=== PATIENT | male | born 1945 | race Caucasian/White ===

== ENCOUNTER 2017-03-31 10:17 | Inpatient (IN) ==
[2017-03-31] MEDS ORDERED: ZOFRAN ODT PO ONE (10:37)
[2017-03-31 11:12] LABS: MANUAL DIFF NEEDED? NO
--- NOTE | 2017-03-31 11:14 | PROVIDER DOCUMENTATION ---
HPI-Abdominal Pain/GI Problem - General Chief Complaint: Abdominal Pain Stated Complaint: chest pain Time Seen by Provider: 03/31/17 10:24 Source: patient Allergies/Adverse Reactions: Patient Allergies Allergy/AdvReac Type Severity Reaction Status Date / Time No Known Allergies Allergy Verified 08/15/13 06:36 Home Medications: Home Medication List Medication Instructions Recorded Confirmed Last Taken Type Aspirin 81 mg PO DAILY 08/15/13 08/15/13 03/31/17 History Esomeprazole [Nexium] 40 mg PO DAILY 08/15/13 03/31/17 03/30/17 History Hkcktehj-Skafnli-Smcw 149-Hyal 1 each PO BID 08/15/13 03/31/17 03/30/17 History [Glucosamine Chondroitin Tablet] LISINOpril [Prinivil] 20 mg PO DAILY 08/15/13 03/31/17 03/30/17 History Meloxicam [Mobic] 7.5 mg PO DAILY 08/15/13 03/31/17 03/30/17 History Multivitamins/Minerals [Centrum 1 each PO DAILY 08/15/13 03/31/17 03/30/17 History Silver] SIMVAstatin [Zocor] 40 mg PO QHS 08/15/13 03/31/17 03/30/17 History Valacyclovir HCl [Valtrex] 1,000 mg PO PRN PRN 08/15/13 03/31/17 03/30/17 History - History of Present Illness-ABD Nature of Presenting Problems: 71 y/o WM c/o periumbilical abdominal pain that began at 0900 today. States it was a severe sharp pain, until he vomited just a few minutes ago, and it has improved. Had a normal BM this morning, no blood or diarrhea. Still feeling nauseated. Denies chest pain or sob, although states he is worried about his heart. Denies fevers or chills. He has been losing weight; about 15 pounds in 2 months. He has been seeing Dr. Joy for this and apparently had a cancer work up involving CT scans, barium swallow, and a nuclear medicine gastric emptying test. states they have just found that he has decreased gastric motility, so he has lost appetite. Review of Systems - Adult - REVIEW OF SYSTEMS - ADULT Constitutional: reports: see HPI, weight loss. denies: chills, fever, fatique Eyes: reports: no symptoms reported. denies: decreased vision, blurred vision, double vision, eye pain Ears, Nose, Mouth & Throat: reports: no symptoms reported. denies: ear pain, nose pain, throat pain Cardiovascular: reports: no symptoms reported. denies: chest pain, palpitations Respiratory: reports: no symptoms reported. denies: cough, shortness of breath , wheezing Gastrointestinal: reports: see HPI, abdominal pain, nausea, poor appetite, vomiting. denies: constipation, diarrhea, rectal bleeding Genitourinary: reports: no symptoms reported. denies: dysuria, discharge, frequency Musculoskeletal: reports: no symptoms reported. denies: bone pain, back pain, muscle aches Integumentary: reports: no symptoms reported. denies: rash Neurological: reports: no symptoms reported. denies: headache/migraines Psychiatric: reports: no symptoms reported Endocrine: reports: no symptoms reported Hematologic/Lymphatic: reports: no symptoms reported Allergic/Immunologic: reports: no symptoms reported All Other Systems: Reviewed and Negative Past History - Adult - PAST MEDICAL HISTORY-ADULT Review of Records: reports: Old Records Reviewed, Nursing Assessment Review, Medications Reviewed, Social history reviewed & non-contributory. Major Childhood Illnesses: reports: denies history Cardiovascular: reports: HTN, hyperlipidemia Respiratory: reports: denies history Gastrointestinal: reports: denies history Genitourinary: reports: denies history Musculoskeletal: reports: denies history Neurological: reports: denies history Endocrine/Immune: reports: denies history Other Conditions: reports: denies history - PRIOR SURGERIES/PROCEDURES Surgical/Procedure History: reports: reviewed, not pertinent - IMMUNIZATION STATUS Childhood Immunizations: See Nurse Assessment Flu Vaccine: See Nurse Assessment - FAMILY HISTORY Family History: reviewed, not pertinent - SOCIAL HISTORY Smoking: denies Substance Use: none/never Alcohol Use Frequency: never Physical Exam-General - PHYSICAL EXAM-ADULT Initial Vital Signs Reviewed: Yes - CONSTITUTIONAL General Appearance: appears well, alert, no apparent distress - EYES Eyes: PERRL/EOMI, pink conjunctivae - HEAD, EARS, NOSE, MOUTH & THROAT HENMT: normocephalic/atraumatic, moist mucous membranes - NECK Neck: non-tender, full range of motion, supple, normal inspection. negative: lymphadenopathy - RESPIRATORY Respiratory: chest non-tender, lungs clear, normal breath sounds, no pleuratic chest pain, no respiratory distress, no accessory muscle use. negative: respiratory distress, decreased breath sounds, accessory muscle use, crackles, rales, rhonchi, wheezing - CARDIOVASCULAR Cardiovascular: normal peripheral pulses, regular rate, rhythm, no edema, no gallop, no murmur - GASTROINTESTINAL (ABDOMEN) Abdominal Exam: normal bowel sounds, soft, no organomegaly, no pulsatile mass, tenderness (periumbilical) - LYMPHATIC Lymphatic: no adenopathy - MUSCULOSKELETAL Back Exam: normal inspection, no CVA tenderness, no vertebral tenderness Extremity: normal range of motion, non-tender, normal gait, normal inspection Peripheral Pulses: radial (R): 2+, radial (L): 2+, dorsalis-pedis (R): 2+, dorsalis-pedis (L): 2+ - SKIN Integumentary: normal color, normal turgor, warm/dry - NEUROLOGIC Neurologic: grossly normal, no motor/sensory deficits - PSYCHIATRIC Psych/Mental Status: normal mood/affect, normal thought content, normal thought process, oriented x 3 Progress - PLAN OF CARE/RESULTS Progress/Plan/Lab Results: Vital Signs - 8 hr 03/31/17 10:26 Temperature 97.9 F Pulse Rate 89 Respiratory Rate 24 Blood Pressure 124/71 O2 Sat by Pulse Oximetry 99 Orders Category Date Time Status Saline Loc DIRECTED Care 03/31/17 11:07 Active NPO Diet 03/31/17 11:07 Active AMYLASE [CHEM] Stat Lab 03/31/17 11:07 Ordered CBC WITH ELECTRONIC DIFF [HEME] Stat Lab 03/31/17 11:07 Ordered CK PROFILE [SP CHEM] Stat Lab 03/31/17 11:09 Ordered COMPREHENSIVE METABOLIC PANEL [CHEM] Stat Lab 03/31/17 11:07 Ordered LIPASE [CHEM] Stat Lab 03/31/17 11:07 Ordered TROPONIN T Stat Lab 03/31/17 11:09 Ordered Ondansetron Odt [Zofran Odt] Med 03/31/17 10:37 Discontinued 4 mg PO NOW ONE EKG [EKG] Stat Ther 03/31/17 11:07 Ordered Result Diagrams: 03/31/17 10:21 03/31/17 10:21 - REASSESSMENT Reassessment #1 Time Reassessed: 12:21 (Discussed findings with with patient. He is a daily alcohol drinker, had "2 drinks" last night, each drink aving 3 shots of hard liquor.) Status: unchanged - CONSULTS/PCP/HOSPITALIST Notification #1 *Consult/PCP/Hospitalist*: Dr. Linton, internal medicine Time Discussed: 12:28 Reason/Comments: alcoholic pancreatitis Consult Disposition: Admit Departure - Departure Time of Disposition Decision: 12:23 DIAGNOSIS: Pancreatitis, alcoholic, acute Qualifiers: Acute pancreatitis complication: unspecified Qualified Code(s): K85.20 - Alcohol induced acute pancreatitis without necrosis or infection Disposition: ADMITTED INPATIENT 09 Certified Medical Emergency: Emergent Condition: Stable Referrals and Follow-Ups: None,PCP [Primary Care Provider] - - Critical Care Note This patient required my direct & personal management of CC.: No Attestation - Physician/ STEPHANIE Attestation Patient care was provided by Advanced Practice Provider:: Yes Advanced Practice Provider:: Johanna Reilly Advanced Practice Provider documentation review:: The Mid-level provider documentation, treatment plan and medical decision making was reviewed by the physician who agrees with all treatment and medical decision making by the MLP.
[2017-03-31 11:36] LABS: BASO% 0.1 % (0.0-0.8); EOS# 0.18 X1000 (0.0-0.7); EOS% 1.8 % (0.0-10.0); HEMATOCRIT 37.5 % (42.0-52.0); HEMOGLOBIN 12.4 g/dL (14.0-18.0); IMM GRAN# 0.02 X1000 (0.0-0.04); IMM GRAN% 0.2 % (0.0-0.5); LYMPH# 3.17 X1000 (1.2-3.4); LYMPH% 32.3 % (20.5-51.1); MCH 31.1 PG (27-31); MCHC 33.1 g/dL (33-37); MONO# 0.83 X1000 (0.11-0.59); MONO% 8.5 % (1.7-9.3); MPV 10.5 FL (7.4-10.4); NEUT% 57.1 % (42.2-75.2); PLT 389 X1000 (130-400); RBC 3.99 XMIL (4.7-6.1)
[2017-03-31 12:12] LABS: AGAP 19; ALBUMIN 4.1 g/dL (3.5-5.0); ALKALINE PHOSPHATASE 85 U/L (32-122); AMYLASE 770 U/L (20-200); BUN 13 mg/dL (8-22); CALCIUM 9.1 mg/dL (8.8-10.2); CHLORIDE 98 mmol/L (98-107); COSMO 280; GOT 114 U/L (10-34); GPT 41 U/L (10-44); LIPASE 2579 U/L (13-60); POTASSIUM 3.5 mmol/L (3.5-5.1); SODIUM 139 mmol/L (136-145); TCO2 22 mmol/L (25-35); TOTAL BILIRUBIN 0.47 mg/dL (0.20-1.00); TOTAL PROTEIN 6.5 g/dL (6.3-8.3)
[2017-03-31] MEDS ORDERED: NS 1,000 ML IV ONE (12:17)
[2017-03-31] MEDS ORDERED: REGLAN IV ONE (12:19)
[2017-03-31] MEDS ORDERED: DILAUDID IV ONE (12:20)
--- NOTE | 2017-03-31 13:20 | EKG Report ---
Test Performed on : 03/31/2017 10:20:32 AM Test Reason : cp Blood Pressure : / mmHG Vent. Rate : 093 BPM Atrial Rate : 093 BPM P-R Int : 132 ms QRS Dur : 094 ms QT Int : 378 ms P-R-T Axes : 041 018 041 degrees QTc Int : 469 ms Sinus rhythm. with frequent premature ventricular complexes. with junctional escape complexes. Possible Inferior infarct (cited on or before 31-MAR-2017) Abnormal ECG When compared with ECG of 31-MAR-2017 10:19, (Unconfirmed) Sinus rhythm. has replaced Atrial fibrillation. Unconfirmed Result
[2017-03-31 14:40] LABS: HDL 42 mg/dL (35-55); LDL 57 mg/dL; MAGNESIUM 2.1 mg/dL (1.5-2.7); TRIGLYCERIDES 58 mg/dL (39-160); VLDL 12 mg/dL
[2017-03-31 14:48] LABS: FREE T4 1.6 ng/dL (0.93-1.70)
[2017-03-31] MEDS ORDERED: ATIVAN IV PRN ×2 (15:21)
--- NOTE | 2017-03-31 16:10 | HISTORY AND PHYSICAL ---
PRIMARY CARE PHYSICIAN: Dr. Skinny Joy. CHIEF COMPLAINT: Abdominal pain. HISTORY OF PRESENT ILLNESS: Mr. Wheat is a 71-year-old male with a history of hypertension, hyperlipidemia and GERD, who presents with acute onset of abdominal pain that began this morning around 7:30 or 8 while he was sitting at his desk. He has actually had symptoms going on since beginning of this year. He states he has seen Dr. Joy and has had multiple tests run so far including barium swallow, gastric emptying test. He is also scheduled to see Dr. Serrano with GI soon. He reports that today about an hour after he ate he started having significant bilateral upper quadrant abdominal pain, which he describes as intense in nature and sharp in description. It was nonradiating and is constant. He had an episode of emesis while he was in ER, but has had no diarrhea. He denies hematemesis or hematochezia. He denies any overt chest pain or shortness of breath, no lower extremity edema or orthopnea. He denies any dysuria or hematuria. He reports that he has two drinks of scotch every night and has been doing so for some time now. He came to the ER because the pain got too bad, and in the ER he had a lipase of 2579 and an amylase of 770 consistent with pancreatitis. He was also mildly anemic, but otherwise his laboratory data studies are unremarkable. He is now going to be admitted for further treatment of acute pancreatitis. PAST MEDICAL HISTORY: 1. Hypertension. 2. GERD. 3. Hyperlipidemia. SURGICAL HISTORY: He has had a hernia repair, left hip replacement, and he has had a benign esophageal mass removed. SOCIAL HISTORY: Patient denies tobacco or drug use. He reports drinking 2 shots of liquor a night. He is . 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 FAMILY HISTORY: Noncontributory. REVIEW OF SYSTEMS: Fourteen-point review of systems obtained and found to be negative with the exception of the HPI. ALLERGIES: No known drug allergies. HOME MEDICATIONS: 1. Aspirin 81 mg daily. 2. Nexium 40 mg daily. 3. Glucosamine chondroitin 1 b.i.d. 4. Prinivil 20 mg daily. 5. Mobic 7.5 mg daily. 6. Zocor 40 mg at bedtime. 7. Valtrex 1000 mg p.o. as needed. PHYSICAL EXAMINATION: VITAL SIGNS: Blood pressure is 163/89, heart rate 75, respiratory rate 22, O2 saturation 98% on room air. GENERAL: Well developed, well nourished, male, lying in hospital bed in no acute distress. NEUROLOGIC: The patient is awake, alert, and oriented. Follows commands without focal deficits. HEENT: Head is atraumatic and normocephalic. Pupils are equal, round, reactive to light. Oral mucosa is moist. NECK: Trachea is midline. No JVD or carotid bruits. CHEST: Clear to auscultation bilaterally. CV: Regular rate and rhythm. S1, S2 is noted. No murmurs, gallops, clicks, rubs. GI: Bilateral upper quadrant tenderness to palpation, right greater than left. Belly is soft, nondistended. Hypoactive bowel sounds are noted. EXTREMITIES: Without edema, clubbing or cyanosis. Pulses are palpable bilaterally. DIAGNOSTIC DATA: WBC 9.82, hemoglobin 12.4, hematocrit 37.5, platelet count 389. Sodium 139, potassium 3.5, chloride 98, CO2 22, anion gap 19. BUN 13, creatinine 0.7, glucose 140, calcium 9.1, magnesium 2.1. Ferritin 22, bilirubin 0.47. AST 114, ALT 41, alkaline phosphatase 85, troponin negative. Amylase 770, lipase 2579. ASSESSMENT AND PLAN: 1. Acute pancreatitis: Etiology is unclear. However, would presume alcohol as the main offender. Would not rule out gallstone pancreatitis or other etiologies as well. We are going to check a lipid panel. A CT of the abdomen and pelvis. Keep him on nothing by mouth. Provide bowel rest and add as-needed intravenous pain medication, as well as aggressive hydration. We have advised him to stop drinking, at least for now. 2. Mild anemia: Will check iron studies and treat appropriately. 3. Hypertension: We will add intravenous as-needed medications for now. 4. Gastroesophageal reflux disease: We will add intravenous Protonix. 5. Hyperlipidemia: We will hold his statin for now. Restart when he is feeling better. 6. Deep vein thrombosis prophylaxis with Lovenox: Further recommendations to follow. Dictated by BRIJESH Reynolds for Fab Linton MD cc: Traivs J. Mikolaschek, MD Skinny Hameed MD
[2017-03-31] MEDS: NS 1,000 ML IV SCH ×2 (16:11→22:56)
[2017-03-31] MEDS: DILAUDID IV PRN ×3 (16:52→22:55)
[2017-03-31] MEDS ORDERED: APRESOLINE IV PRN (17:38)
[2017-03-31] MEDS ORDERED: LABETALOL IV PRN (17:38)
--- NOTE | 2017-03-31 19:47 | Diag Imaging Result Document ---
PROCEDURE NAME: ABDOMEN/PELVIS W/CONTRAST - 03/31/2017 COMPARISON: 02/23/2017. FINDINGS: There is suggestion of mild atelectasis at the left lung base. There is extensive inflammatory stranding and fluid that appears to be emanating from the pancreas consistent with acute pancreatitis. There is subtle low density involving the proximal tail of the pancreas suggesting possible early pancreatic necrosis. The gallbladder appears normal and is not distended. There is no evidence of significant biliary dilatation. There is nonloculated fluid that appears to be emanating from the pancreas and extending into the pericolic gutters. There is no evidence of a loculated fluid collection to indicate pancreatic abscess on this study. The duodenum adjacent to the pancreas is thickened suggesting secondary duodenitis. The stomach is distended. There is no portal vein or splenic vein thrombosis. There is diverticulosis coli, but there is no evidence of diverticulitis. There are few stable cystic-appearing tiny renal lesions. No free abdominal gas is appreciated. The pelvis is partially obscured by beam-hardening artifact related to left hip arthroplasty. The remainder of the solid viscera of the abdomen and pelvis and the remainder of the GI tract is essentially unremarkable. IMPRESSION: 1. Severe acute pancreatitis consistent with the given history with potential early focal pancreatic necrosis at the tail. 2. Suggestion of adjacent duodenitis. 3. Gastric distention. 4. Other incidental/nonacute findings detailed above.
[2017-03-31] MEDS: ZOFRAN IV PRN (23:32)
[2017-04-01] MEDS: ZOFRAN IV PRN (03:50)
[2017-04-01] MEDS: DILAUDID IV PRN ×5 (03:50→19:53)
[2017-04-01 04:11] LABS: HEMATOCRIT 43.8 % (42.0-52.0); HEMOGLOBIN 14.7 g/dL (14.0-18.0); MCH 31.2 PG (27-31); MCHC 33.6 g/dL (33-37); MPV 10.2 FL (7.4-10.4); RBC 4.71 XMIL (4.7-6.1)
[2017-04-01] MEDS: NS 1,000 ML IV SCH (05:49)
[2017-04-01] MEDS ORDERED: LR 1,000 ML IV SCH (13:03)
[2017-04-01] MEDS ORDERED: PROTONIX IV SCH (13:15)
[2017-04-01] MEDS: SODIUM CHLORIDE 0.9% INJ SCH (13:57)
[2017-04-01 15:06] LABS: AGAP 12; BUN 24 mg/dL (8-22); CALCIUM 8.5 mg/dL (8.8-10.2); CHLORIDE 107 mmol/L (98-107); COSMO 294; POTASSIUM 5.2 mmol/L (3.5-5.1); SODIUM 144 mmol/L (136-145); TCO2 25 mmol/L (25-35)
[2017-04-01 15:15] LABS: URINE CULTURE NEEDED? NO; URINE SOURCE CATH
[2017-04-01 15:31] LABS: BILIRUBIN URINE SMALL (NEGATIVE); BLOOD URINE SMALL (NEGATIVE); COLOR YELLOW; GLUCOSE URINE TRACE mg/dL (NEGATIVE); LEUKOCYTES URINE NEGATIVE (NEGATIVE); NITRITE URINE NEGATIVE (NEGATIVE); PH URINE 5.5; PROTEIN URINE 100 mg/dL (NEGATIVE); SP GRAVITY URINE 1.036; TURBIDITY URINE HAZY (CLEAR); URINE MICRO REVIEW NEEDED? YES; UROBILINOGEN URINE 2 mg/dL (NORMAL)
--- NOTE | 2017-04-01 15:46 | PROGRESS NOTE ---
DATE: 04/01/2017 SUBJECTIVE: Today, Mr. Wheat referred to be doing relatively fine. He continues to have significant abdominal discomfort, but more importantly, he is having some abdominal distention. Per the nursing staff, he has had very minimal urine output. OBJECTIVE: Vital signs: Blood pressure is 141/72, pulse of 105, respirations 16, temperature is 98.1 degrees. General: Mr. Wheat is a 71-year-old male. He is in bed. Did not seem to be in any distress. HEENT: Mucosa pink and moist. Anicteric. Acyanotic. Neck: Supple. Chest: Good air entry bilaterally. No crepitations. No rhonchi. Cardiovascular: Regular rate and rhythm. Abdomen: Distended, mildly tender in the epigastrium. Bowel sounds are present, but they are slightly hypoactive. Extremities: No pedal edema. Central Nervous System: Patient is alert and oriented x4. There is no focal neurological deficit. LABORATORY AND IMAGING: WBC is 18.55, hemoglobin is 14.7, platelet count of 301,000. Sodium is 144, potassium is 5.2, chloride is 107, bicarbonate is 25, BUN is 24. The patient's C-reactive protein is 65.62. A CT scan of the abdomen and pelvic shows severe acute pancreatitis consistent with the given history of potential early focal pancreatic necrosis at the tail, suggestion of adjacent duodenitis, gastric distention. ASSESSMENT: 1. Severe acute pancreatitis. The patient is having some abdominal distention, which is consistent with what we see on the CT scan. We will going to put in an NG tube, keep the patient n.p.o., and continue with the IV fluids. I have changed the saline to lactate. 2. Duodenitis. I think this is probably reactive to the pancreatitis. Will keep the patient on the PPI and will consult Gastroenterology for the severe pancreatitis. 3. History of alcohol abuse. Patient has been counseled. 4. Hypertension, stable. 5. Oliguria, likely due to the acute pancreatitis with 3rd spacing. 6. Iron deficiency. We will replace this when the patient is more stable. Today, Mr. Wheat is stable, but he is critical. I will order an NG tube to be placed and a Rico catheter to be placed. We will keep a very close eye on Mr. Wheat here on the floor. At the least changes in clinical picture, I would have very low threshold to transfer him to the ICU. I will consult Gastroenterology to evaluate the patient and give us some more recommendations. cc: Fab Linton MD
[2017-04-01 15:56] LABS: UR EPITHELIAL CELLS <10 /HPF (<10); URINE BACTERIA NEGATIVE /HPF; URINE RBC <10 /HPF (<10); URINE WBC <10 /HPF (<10)
--- NOTE | 2017-04-01 16:00 | Diag Imaging Result Document ---
PROCEDURE NAME: CHEST-PORTABLE - 04/01/2017 COMPARISON: Chest radiograph dated 06/20/2012. FINDINGS: There is a newly placed NG tube. The tip projects well below the diaphragm and is assumed to be in the stomach in the expected position. The lungs are over exposed but there appears to be mild atelectasis and/or infiltrate at the left lung base. IMPRESSION: 1. Recent placement of NG tube as described in the expected position. 2. Suggestion of left basilar atelectasis and/or infiltrate.
[2017-04-01 16:05] LABS: INR 1.1; PROTIME 11.6 Seconds (9.2-11.7)
--- NOTE | 2017-04-01 18:19 | CONSULTATION ---
DATE OF CONSULTATION: 04/01/2017 GASTROENTEROLOGY INPATIENT CONSULTATION: REQUESTING PHYSICIAN.: Dr. Linton. PRIMARY CARE DOCTOR: None. REASON FOR CONSULTATION: Pancreatitis. HISTORY OF PRESENT ILLNESS: Mr. Wheat is a 71-year-old male, who was admitted in the hospital last night for acute onset of symptoms of epigastric abdominal pain radiating to the back. According to the patient, he was at work sitting at his desk around 7:30, 8:00 o 'clock when he had sudden onset of epigastric pain. He continued to have worsening symptoms and at that time decided to come home. He rested for some time but his symptoms persisted, and at that time, he decided to come to the ER per the ambulance. In the ER he was noted to have elevated lipase of 2579, amylase of 770. Patient admits drinking 3 shots of scotch every day for more than 10 years, a 1 L bottle scotch lasted him a week. The patient has been doing that for many years. The patient denies any previous history of pancreatitis. The patient denies any prior history of gallstones or liver abnormalities. The patient denies any history of autoimmune pancreatitis in the past. The patient also denies any family history of pancreatitis. The patient denies using any new medications in the recent past. The patient has had abdominal pain going on for some time and he had upper GI and gastric emptying study done by Dr. Joy which had shown gastroparesis. PAST MEDICAL HISTORY: 1. Hypertension. 2. GERD. 3. Hyperlipidemia. 4. Gastroparesis. PAST SURGICAL HISTORY: 1. Hernia repair. 2. Left hip replacement. 3. Benign esophageal mass removal. 4. Colonoscopy more than 5 years ago. SOCIAL HISTORY: He denies any history of tobacco or drug abuse. He drinks 3 shots of scotch every night for more than 10 years, 1 L of scotch lasts him 1 week. He is . His is present at bedside. She works in [employer]. Daughter was also present at the bedside. 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 FAMILY HISTORY: Denies history of recurrent pancreatitis. REVIEW OF SYSTEMS: He denies any current fevers, rigors, or chills, chest pain , shortness of breath, dyspnea. Denies any genitourinary complaints although he has decreased urine output since admission which is secondary to pancreatitis. He is getting IV fluids. He denies any neurologic complaints. He denies any nausea, vomiting, or vomiting blood or passing blood in the stools. His nausea has improved since insertion of NG tube. His abdominal pain is continuous but is slightly better with IV pain control. MEDICATIONS AT HOME: 1. Aspirin 81 mg every day. 2. Nexium 40 mg every day. 3. Glucosamine chondroitin 1 capsule b.i.d. 4. Prinivil 20 mg daily. 5. Mobic 7.5 mg once daily. 6. Zocor 40 mg daily at bedtime. 7. Valtrex 1000 mg as needed. ALLERGIES: No known drug allergies. MEDICATIONS IN THE HOSPITAL: Include: 1. Hydralazine. 2. Dilaudid. 3. Labetalol. 4. Ativan. Lactated Ringer's at 150 mL/h. 5. Zofran. 6. Protonix. He is currently n.p.o. PHYSICAL EXAMINATION: Vital Signs: Temperature 98.3 degrees, pulse rate of 126 ,respiratory rate 18, blood pressure of 124/78, saturating 92% on room air. Body weight of 151 pounds. BMI 25.1 kg/m2. General Appearance: Moderately built and nourished, lying in bed, in no acute distress. HEENT: No pallor. No icterus. Pupils equal, react to light. Neck: Supple. Chest: Decreased breath sounds. Cardiac: Regular, tachycardic. Abdomen: Distended, tympanic on percussion. No rebound. Discomfort in the periumbilical region. Bowel sounds are hypoactive,and liver and spleen cannot be felt. Extremities: No cyanosis, clubbing, edema. Neurologic : Alert, awake, oriented. DIAGNOSTIC DATA: His hemoglobin and hematocrit is 14.7 and 43.8, white count of 18.5, platelet count of 301,000, MCV of 93, INR 1.1, PT of 11.6. Sodium 142, potassium 5.2, chloride 107, bicarb 25, anion gap 12, BUN of 24, creatinine 1, glucose of 158, calcium 8.5, CRP 65.62. His AST is 114, ALT 41, alkaline phosphatase is 85, total bilirubin is 0.47, total protein 6.5, albumin of 4.1, amylase of 773, lipase of 2579. TSH 37.8, free T4 1.6, and triglycerides 58. Calcium is 9.1, has gown down to 8.5. He is getting hemoconcentrated because of 3rd spacing. Urinalysis showing positive protein, trace ketones, small blood, and small bilirubin. 1. He had a CT scan of the abdomen and pelvis on 03/31/2017 which showed severe acute pancreatitis consistent with the given history, with potential early focal pancreatic necrosis at the tail. 2. Suggestion of adjacent duodenitis. 3. Gastric distention. 4. No portal splenic vein thrombosis. 5. Diverticulosis coli, no diverticulitis, no free air. Artifact related to the left hip arthroplasty. Extensive inflammatory stranding and fluid appears to be emanating from the pancreas, low density, involving the proximal tail of the pancreas suggesting early pancreonecrosis. The gallbladder appears normal, it is not distended. No evidence of significant biliary dilation. IMPRESSION: 1. Severe alcoholic pancreatitis. 2. Reflux disease, on Nexium. 3. Diverticulosis. 4. Oliguria secondary to pancreatitis. 5. Alcoholism and mildly elevated AST. RECOMMENDATIONS: 1. We will aggressively hydrate the patient. We will increase the Ringer's lactate to 250 mL/h for the first 24 hours and then cut down to 150 mL/h. 2. Continue on Protonix IV b.i.d. 3. We will keep on IV antiemetics, IV pain control. Keep the patient n.p.o. for now. 4. Patient has early pancreatic tail necrosis and if his symptoms continue to worsen we may have to transfer him to a tertiary care facility for debridement if needed. 5. The patient is counseled to quit alcohol completely. We will keep the patient on multivitamin and watch for delirium and agitation. Start Banana bag once daily. 6. We will avoid lisinopril and NSAIDs for now. 7. The patient is at high risk of complications of renal failure, pulmonary edema, and DIC because of the severe acute pancreatitis. So I have a low threshold of transferring him to the ICU. I discussed the above plan of care with the patient and family at bedside and with Dr. Linton. All questions were answered. cc: MD Fab Rocha MD [facility]
[2017-04-01] MEDS: LR 1,000 ML IV SCH (19:52)
[2017-04-02] MEDS: M.V.I.-12 10 ML, FOLIC ACID 1 MG, MAGNESIUM SULFATE 1 GM, THIAMINE 100 MG in NS 1,000 ML IV SCH ×2 (00:10→23:51)
[2017-04-02] MEDS: LR 1,000 ML IV SCH ×7 (00:13→23:50)
[2017-04-02] MEDS: DILAUDID IV PRN ×5 (00:48→23:51)
[2017-04-02] MEDS: SODIUM CHLORIDE 0.9% INJ SCH ×2 (01:01→15:03)
[2017-04-02] MEDS: PROTONIX IV SCH ×2 (01:02→15:03)
[2017-04-02 07:40] LABS: HEMOGLOBIN 11.4 g/dL (14.0-18.0); MCHC 31.7 g/dL (33-37); MCV 97.8 FL (81-99); MPV 10.2 FL (7.4-10.4); RBC 3.68 XMIL (4.7-6.1)
[2017-04-02 08:03] LABS: AGAP 9; BUN 26 mg/dL (8-22); CHLORIDE 111 mmol/L (98-107); COSMO 292; POTASSIUM 4.3 mmol/L (3.5-5.1); SODIUM 144 mmol/L (136-145); TCO2 24 mmol/L (25-35)
[2017-04-02] MEDS ORDERED: THERAGRAN LIQUID PO SCH (09:00)
[2017-04-02] MEDS: ELDERTONIC PO SCH (12:28)
[2017-04-02] MEDS ORDERED: M.V.I.-12 10 ML, FOLIC ACID 1 MG, MAGNESIUM SULFATE 1 GM, THIAMINE 100 MG in NS 1,000 ML IV ONE (15:25)
--- NOTE | 2017-04-02 16:40 | PROGRESS NOTE ---
DATE: 04/02/2017 SUBJECTIVE: Today Mr. Wheat referred to be doing a lot better. Abdominal distention is significantly improved since the NG tube was placed in. OBJECTIVE: Vital signs: Blood pressure is 120/65, pulse is 103, respirations 18, temperature 98.2 degrees. The patient was saturating ambient air. General: Mr. Wheat is a 71-year-old male. He was in bed. He did not seem to be in any distress. HEENT: Mucosa is pink and moist. Anicteric. Acyanotic. Neck: Supple. Chest: Good air entry bilaterally. No crepitations. No rhonchi. Cardiovascular: Mildly tachycardic but no murmurs, no rubs, and no gallops. Abdomen: Still distended and tender in the epigastrium. Bowel sounds are present. Extremities: No pedal edema. ASSOCIATE: Patient is alert and oriented x4. No focal neurological deficit. LABORATORY DATA: WBC is 7.36, hemoglobin is 11.4, platelet count of 211,000. Chemistry is reviewed. Sodium 144, potassium is 4.3, chloride is 111, bicarb is 24. C-reactive protein went up to 315. ASSESSMENT: 1. Severe acute pancreatitis. Patient will continue NPO. Adequate pain control. 2. Duodenitis with gastric distention. The patient has an NG tube. He is having significant output but he feels a whole lot better. We are going to continue NPO and continue with the PPI. 3. History of alcohol abuse. Patient has been counseled. 4. Hypertension, stable. 5. Oliguria on presentation. This has improved. Patient actually has slightly improved. So far has 350 urine output. 6. Iron deficiency anemia, noted. PLAN: So in general, Mr. Wheat referred to be doing a whole lot better today. Inflammatory markers continue to be extremely high. We will continue the patient NPO. I think it is okay for ice chips but nothing to feed. We will continue with the IV fluids, pain control, and repeat his labs for tomorrow morning. cc: Fab Linton MD
--- NOTE | 2017-04-02 17:18 | PROGRESS NOTE ---
DATE: 04/02/2017 SUBJECTIVE: The patient is resting in bed. His daughter is present at bedside. He has NG tube and it has suctioned out approximately 1250 mL today. The NG tube aspirate appears like darkish brown in color. He denies any fevers, rigors, or chills. He denies any flatus or any bowel movements since admission. OBJECTIVE: Vital signs: Temperature 98.2, pulse of 103, respiratory 18, blood pressure 120/65, saturating 93% on 2 L nasal cannula. General Appearance: Moderately nourished , lying in bed, in no acute distress. HEENT: Mild pallor. No icterus. NG tube in place. Neck : Supple. Abdomen: Softer than yesterday. Bowel sounds are hypoactive. No rebound or guarding. Mild epigastric discomfort noted. Extremities: No cyanosis, clubbing, or edema. Neurologic: Alert, awake, and oriented. LABS: Hemoglobin and hematocrit is 11.4 and 36, white count of 7.3, platelet count of 211,000. MCV of 97.18, INR of 1.1. Sodium of 144, potassium 4.3, chloride 111, bicarb 24 , anion gap of 9, BUN of 26, creatinine 0.8, glucose of 113, calcium is 8. Magnesium 2.2. CRP is 315.88. Lipase was 620, which has come down from 18.73 yesterday. IMPRESSION AND PLAN: 1. Severe acute alcoholic pancreatitis with the possibility of pancreatic necrosis evident in the tail of the pancreas. I will continue aggressive hydration. He is on 1250 mL of Ringer's lactate which he will continue until today and will switch it to 150 mL/h, as he is requiring some oxygen. His lipase is coming down. We will keep him NPO, as he still has not passed any flatus. His abdominal pain is getting better controlled. His NG tube output is ongoing. We will keep him on IV pain control and IV antiemetics for now. 2. Gastrointestinal prophylaxis with PPIs. 3. Once the patient is able to pass flatus and abdominal pain is controlled, we will start him on liquid diet. He is on ice chips currently. 4. Possible coffee grounds on the nasogastric tube. In this regard, we will keep on PPIs twice daily. Watch his hemoglobin and hematocrit. 5. Alcoholism. The patient was counseled to quit alcohol completely. We will continue on banana bag once daily for 3 days and after that hopefully start him on multivitamin once daily by mouth. 6. Anemia- Continue to watch. Hemodilution vs coffee grounds. The above plan was discussed with the patient and the family at bedside and all questions answered. cc: MD Fab Rocha MD MTDD
[2017-04-02] MEDS ORDERED: LR 1,000 ML ONE (17:23)
[2017-04-03] MEDS: PROTONIX IV SCH ×2 (01:18→13:25)
[2017-04-03] MEDS: SODIUM CHLORIDE 0.9% INJ SCH (01:18)
[2017-04-03] MEDS: DILAUDID IV PRN ×6 (04:46→22:44)
[2017-04-03] MEDS: LR 1,000 ML IV SCH ×2 (06:17→13:24)
[2017-04-03 07:40] LABS: HEMATOCRIT 30.9 % (42.0-52.0); HEMOGLOBIN 9.7 g/dL (14.0-18.0); MCH 30.4 PG (27-31); MCHC 31.4 g/dL (33-37); MCV 96.9 FL (81-99); MPV 9.7 FL (7.4-10.4); RBC 3.19 XMIL (4.7-6.1)
[2017-04-03 07:59] LABS: AGAP 10; CHLORIDE 112 mmol/L (98-107); POTASSIUM 4.4 mmol/L (3.5-5.1); SODIUM 147 mmol/L (136-145); TCO2 25 mmol/L (25-35)
[2017-04-03 08:00] LABS: BUN 22 mg/dL (8-22); CALCIUM 7.6 mg/dL (8.8-10.2); COSMO 295
[2017-04-03] MEDS: ELDERTONIC PO SCH (08:12)
--- NOTE | 2017-04-03 11:27 | EKG Report ---
Test Performed on : 04/03/2017 10:57:57 AM Test Reason : elevated hr, sustained, 155 Blood Pressure : / mmHG Vent. Rate : 112 BPM Atrial Rate : 112 BPM P-R Int : 116 ms QRS Dur : 090 ms QT Int : 326 ms P-R-T Axes : -12 006 019 degrees QTc Int : 444 ms Sinus tachycardia. with premature atrial complexes. Otherwise normal ECG When compared with ECG of 31-MAR-2017 10:20, premature ventricular complexes. are no longer present premature atrial complexes. are now present Sinus rhythm. is no longer with junctional escape complexes. Borderline criteria for Inferior infarct are no longer present Confirmed by Erin AKBAR, Sarmad Kaufman ([id number]) on 04/04/2017 3:18:31 PM
--- NOTE | 2017-04-03 12:08 | PROGRESS NOTE ---
DATE: 04/03/2017 ATTENDING PHYSICIAN: Dr. Linton. SUBJECTIVE: The patient is currently resting in bed. He has NG tube. He has decreasing NG tube drainage. He still has ongoing ileus. Has not passed any flatus. He is still NPO. His NG tube aspirate is looking more like dark greenish color. His hemoglobin and hematocrit have dropped down to 30%. He denies any vomiting blood or nosebleeds or gum bleeds or any evidence of blood in the urine. He denies any fevers, rigors, chills. He complains of abdominal pain which actually getting improved from before. He is trying to walk in the hallways to help get his strength back. OBJECTIVE: Vital signs: Temperature 98.3, pulse rate of 101, respiratory rate of 17, blood pressure 154/75, saturating 90% on room air. General Appearance: Moderately built, moderately nourished, lying in bed, in no acute distress. HEENT: Pale conjunctivae. No icterus. Pupils equal, react to light. Positive NG tube noted. Neck: Supple. Chest: Decreased breath sounds. Cardiovascular: Tachycardic at times. Abdomen: Mildly protuberant. Discomfort in the epigastrium. No rebound. No guarding. Bowel sounds are hypoactive. Extremities: No cyanosis, clubbing, or edema. Neurologic: He is alert, awake, oriented. LABS: His hemoglobin and hematocrit are 9.7 and 13.9, white count 6.9, platelet count of 178,000, MCV of 96.9. INR 1.1. PT 11.6. Sodium 147, potassium 4.4, chloride 112, bicarb 20, anion gap 10, BUN of 22, creatinine 0.6, glucose of 84, calcium 7.6, magnesium 2.5. CRP is 304.71. Lipase has gone down to 133. IMPRESSION AND PLAN: 1. Severe acute alcoholic pancreatitis with the possibility of pancreatic necrosis evident in the tail of the pancreas. We will continue the current management. We are continuing on 150 mL/h ringer of lactate. We will clamp the NG tube and if the patient is able to pass flatus we will be able to start him on clear liquids. If the NG tube aspiration is less than 100, then we will also take the NG tube out. The patient will continue IV fluids, IV pain control, and IV antiemetics for now. 2. Ileus, likely secondary to pancreatitis. The patient is being encouraged to sit up in the bed and walk as tolerated. 3. Anemia. Seems to be getting worse. Could be part of it is secondary to hemodilutional. NG tube aspirate is looking more like a dark greenish color. Will continue Protonix twice daily. Once he stabilizes we may elect to do EGD either as an inpatient or outpatient, depending on his labs and hospital course. 4. Alcoholism. We will continue on multivitamin once daily. Watch for withdrawal or delirium. So far, patient has been doing well. He is little tachycardic which could be a part of pancreatitis or part of mild alcohol withdrawal. 5. Gastrointestinal prophylaxis. PPIs. 6. Bowel regimen. We will restart it once we know the patient starts passing gas. 7. The above plan of care was discussed with the patient and family at bedside and all questions answered. cc: MD Fab Rocha MD
--- NOTE | 2017-04-03 21:02 | PROGRESS NOTE ---
DATE: 04/03/2017 SUBJECTIVE: I saw Mr. Wheat early this morning. He refers to be doing a whole lot better. He did not have any more abdominal pain. OBJECTIVE: Vital signs: Blood pressure is 154/75, pulse of 101, respirations 17, temperature 98.3 degrees, patient was saturating ambient air. General: Mr. Wheat is a 71-year-old male. He was in bed, not in any distress. HEENT: Mucosa is pink and moist. Anicteric. Acyanotic. Neck: Supple. Chest: Good air entry bilaterally. No crepitations. No rhonchi. Cardiovascular: Regular rate and rhythm. Abdomen: Soft, it is still distended, but nontender today. Bowel sounds are present. WATER SPONGER: Patient is alert and oriented x4. There is no focal neurological deficit. LABORATORY DATA: WBC is 6.95, hemoglobin is 9.7, platelet count is 178,000. Sodium is 147, potassium is 4.5, chloride is 112. C-reactive protein is slightly down to 304.7, and amylase is 133. ASSESSMENT: 1. Severe acute alcohol pancreatitis with possible necrosis at the tail. The patient seems to be doing a whole lot better. We will continue nothing per oral, nasogastric tube in place. The patient should be able to get some ice chips. Nasogastric tube has been clamped. If there are not any major residuals upon suction and patient passes flatus, then we will start some clear liquids as per Gastroenterology. 2. Duodenitis with gastric distention, likely due to pancreatitis. The patient is doing a whole lot better. We will continue with the proton pump inhibitor. 3. History of alcohol abuse. Patient has been counseled. 4. Hypertension. We will continue with p.r.n. labetalol. We will restart patient's p.o. medications when his oral route is reestablished. 5. Iron deficiency anemia, noted. 6. Anemia, likely from dilution. We will keep eye on that. PLAN: In general, Mr. Wheat came in because of acute alcohol induced pancreatitis. He seems to be doing a whole lot better. Abdomen is normal. There is no more pain. We will going to continue with nothing per oral, nasogastric tube in place for another 24 hours with hydration, re- evaluate the nasogastric tube in the morning to see if there is any major residual retained. If not, we can remove the nasogastric tube and start the patient on clear liquids upon consultation with Dr. Serrano. cc: Fab Linton MD
[2017-04-04] MEDS: PROTONIX IV SCH ×2 (01:46→14:12)
[2017-04-04] MEDS: DILAUDID IV PRN ×6 (01:46→23:21)
[2017-04-04] MEDS: M.V.I.-12 10 ML, FOLIC ACID 1 MG, MAGNESIUM SULFATE 1 GM, THIAMINE 100 MG in NS 1,000 ML IV SCH (01:47)
[2017-04-04] MEDS: LR 1,000 ML IV SCH ×4 (03:35→20:05)
[2017-04-04 06:25] LABS: MANUAL DIFF NEEDED? NO
[2017-04-04 06:28] LABS: BASO% 0.1 % (0.0-0.8); EOS# 0.05 X1000 (0.0-0.7); EOS% 0.6 % (0.0-10.0); HEMOGLOBIN 9.2 g/dL (14.0-18.0); LYMPH# 0.63 X1000 (1.2-3.4); LYMPH% 7.4 % (20.5-51.1); MCH 30.6 PG (27-31); MCHC 31.7 g/dL (33-37); MCV 96.3 FL (81-99); MONO# 0.99 X1000 (0.11-0.59); MONO% 11.7 % (1.7-9.3); MPV 9.3 FL (7.4-10.4); NEUT% 80.2 % (42.2-75.2); PLT 184 X1000 (130-400); RBC 3.01 XMIL (4.7-6.1)
[2017-04-04 06:46] LABS: AGAP 13; ALBUMIN 2.4 g/dL (3.5-5.0); ALKALINE PHOSPHATASE 54 U/L (32-122); BUN 17 mg/dL (8-22); CALCIUM 7.6 mg/dL (8.8-10.2); CHLORIDE 110 mmol/L (98-107); COSMO 293; GOT 24 U/L (10-34); GPT 22 U/L (10-44); POTASSIUM 3.9 mmol/L (3.5-5.1); SODIUM 147 mmol/L (136-145); TCO2 24 mmol/L (25-35); TOTAL BILIRUBIN 0.65 mg/dL (0.20-1.00); TOTAL PROTEIN 4.3 g/dL (6.3-8.3)
[2017-04-04] MEDS: ELDERTONIC PO SCH (08:07)
[2017-04-04] MEDS: SODIUM CHLORIDE 0.9% INJ SCH (14:12)
--- NOTE | 2017-04-04 17:45 | PROGRESS NOTE ---
DATE: 04/04/2017 Mr. Wheat is a 71-year-old who presented on 03/31/2017, history of hypertension, hyperlipidemia and gastroesophageal reflux disease. Presented with acute onset of abdominal pain. Began in the morning about 7:30 or 8 o'clock. He was sitting at his desk and actually had symptoms going on since the beginning of the year. States that Dr. Joy had multiple tests run including barium swallow, gastric emptying test scheduled. To see Dr. Serrano with GI soon. Reports that the day of admission, started having significant bilateral upper quadrant abdominal pain. Describes as intense in nature, sharp in description, nonradiating, constant. He had an episode of emesis when he was in ER and no diarrhea. Denied any hematemesis, hematochezia. Denied any overt chest pain or shortness of breath. PAST MEDICAL HISTORY: Include hypertension, gastroesophageal reflux, hyperlipidemia. PAST SURGICAL HISTORY: Had a hernia repair. Left hip replacement. 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 HOME MEDICATIONS: He is on aspirin, Nexium, glucosamine, Prinivil, Mobic, Zocor and Valtrex if needed. He was admitted with acute pancreatitis. Amylase was 770. Lipase is 2579. The etiology was unclear. CT of the abdomen and pelvis, consistent with pancreatitis. He was kept NPO. Given IV fluids and has showed steady improvement but felt this was a severe acute alcoholic pancreatitis, possible necrosis of the of the tail. Patient seems to be improving. Duodenitis and gastritis, gastric dysfunction likely due to pancreatitis. He has an NG tube. History of alcohol abuse. History of hypertension. History of iron-deficiency anemia and also anemia of dilution. EXAM: Today pleasant, awake. He gets his NG tube out at 5 o'clock today. He is excited about that and he wants his Rico catheter out. Afebrile. Temp 97.8 degrees, pulse 100, respirations 17, blood pressure 141/73. HEENT: Pupils are equal, round. Lungs: Are clear in all lung stone. Cardiovascular: Regular rhythm and rate without murmur or S3. Urine output was 1400 mL. LAB: White count 8490, hematocrit 29, platelet count 184,000. Sodium 147, potassium 3.9, chloride 110, BUN 17, creatinine 0.5. C-reactive protein was 304. Albumin 4.3, lipase has come down. Amylase has come down as well. ASSESSMENT AND PLAN: 1. Severe acute alcohol pancreatitis, possible necrosis of the tail. 2. duodenitis, gastric distention secondary to pancreatitis. 3. History of alcohol abuse. 4. Hypertension. 5. Iron deficiency anemia likely diffusion anemia as well. Apparently he had an EGD today. Have reviewed all his orders and I do not see much change. We will stop his Rico catheter and DC his NG tube. cc: Xu Clifton MD
[2017-04-05] MEDS: PROTONIX IV SCH ×2 (03:14→13:24)
[2017-04-05] MEDS: SODIUM CHLORIDE 0.9% INJ SCH ×2 (03:14→13:24)
[2017-04-05] MEDS: LR 1,000 ML IV SCH (03:15)
[2017-04-05] MEDS: DILAUDID IV PRN ×4 (06:32→23:00)
[2017-04-05] MEDS: ZOFRAN IV PRN (06:38)
[2017-04-05] MEDS: ELDERTONIC PO SCH (12:19)
--- NOTE | 2017-04-05 18:00 | PROGRESS NOTE ---
DATE: 04/05/2017 SUBJECTIVE: The patient is resting in a chair. He is feeling better. He is tolerating food well. He is on liquid diet for now. He had 1 bowel movement today. He denies any nausea, vomiting, or vomiting blood. He denies any blood in the stools. Denies any fever, rigors or chills. OBJECTIVE: Vital Signs: Temperature 98.9, pulse rate of 97, respiratory rate 17, blood pressure 147/83. Saturating 92% on room air. General: Moderately nourished, sitting in chair, in no acute distress. HEENT: Pale conjunctiva. No icterus. Neck: Supple. Abdomen : Obese, soft, nontender. Normoactive bowel sounds. No rebound. Extremities: Mild lower extremity edema noted. Neurologic: Alert, awake, and oriented. LABORATORY DATA: Hemoglobin and hematocrit is 9.2 and 29, white count of 8.4, platelet count of 184,000. MCV of 96.3, INR 1.1, PT of 11.6, sodium 140, potassium 3.9, chloride 110, bicarb 24, anion gap 13, BUN of 17. Creatinine 0.5, glucose of 80, calcium is 7.6. Magnesium 2.4. Total bilirubin is 0.65. AST 24. ALT 22. Alkaline phosphatase 64, total protein 4.3 , albumin of 2.4, globulin1.9. Lipase of 37, IgG 4 level was less than 0.3. IMPRESSION/PLAN: 1. Severe acute alcoholic pancreatitis with the possibility of pancreatitis necrosis evident in the tail of the pancreas. Currently the patient is doing better. So we will discontinue his IV fluids. We will advance him to full liquid diet and he will stay on a low -fat diet for the next 6 weeks. His NG tube was taken out. He is passing gas and had a bowel movement so we will slowly advance his diet. The patient will likely go home tomorrow if okay with the primary team. 2. Ileus secondary to pancreatitis, has resolved. Will advance to full liquid diet. 3. Anemia. We will keep the patient on a multivitamin once daily. As an outpatient, we will perform EGD and colonoscopy for workup of anemia. His last colonoscopy was years ago. 4. Alcoholism. Continue on the multivitamin twice daily and the patient was counseled to quit alcohol completely. 5. GI prophylaxis with PPI. 6. Volume overload. The patient will wear compression stockings at home. The above plan was discussed with the patient and the family. cc: MD Xu Rocha MD MTDD
--- NOTE | 2017-04-05 23:25 | PROGRESS NOTE ---
DATE: 04/05/2017 SUBJECTIVE: Mr. Wheat is feeling quite a bit better, and he is excited about potentially going home tomorrow. OBJECTIVE: vital signs: Temp 98.8, pulse is around 100, respirations 20, blood pressure 164/88. CVP less than 6 cm. Lungs: Clear in all lung stone. Cardiovascular: Regular rate without murmur or S3. Abdomen: Soft. Skin: Warm and dry. Genitourinary: Good urine output. LAB: Enzymes have come down. ASSESSMENT AND PLAN: 1. Pancreatitis, improved. Suspect he could go home tomorrow if severe alcoholic pancreatitis, possibility of pancreatitis with pancreatic necrosis evident, tail of the pancreas. Currently, the patient is doing better and is continued on IV fluids. He will be on a low-fat diet for the next 6 weeks. NG tube was taken out, passing gas and had a good bowel movement. Ileus, secondary to pancreatitis, resolved. 1. Anemia. Keep the patient on multivitamins once a day. 2. Alcoholism. Continue his multivitamin twice a day, and patient was consulted to quit alcohol completely, continuous PPI. cc: Xu Clifton MD
[2017-04-06] MEDS: DILAUDID IV PRN (02:24)
[2017-04-06] MEDS: SODIUM CHLORIDE 0.9% INJ SCH (02:24)
[2017-04-06] MEDS: PROTONIX IV SCH (02:24)
--- NOTE | 2017-04-06 06:21 | EKG Report ---
Test Performed on : 04/05/2017 6:18:49 PM Test Reason : sustained tachycardia Blood Pressure : / mmHG Vent. Rate : 120 BPM Atrial Rate : 120 BPM P-R Int : 120 ms QRS Dur : 084 ms QT Int : 332 ms P-R-T Axes : -04 -01 028 degrees QTc Int : 469 ms Sinus tachycardia. Septal infarct , age undetermined Abnormal ECG When compared with ECG of 03-APR-2017 10:57, premature atrial complexes. are no longer present Confirmed by Erin AKBAR, Sarmad Kaufman ([id number]) on 04/07/2017 7:12:04 AM
[2017-04-06 07:19] VITALS: BP 143/87
[2017-04-06] MEDS: ELDERTONIC PO SCH (10:10)
--- NOTE | 2017-04-06 10:16 | DISCHARGE SUMMARY ---
ADMISSION DATE: 03/31/2017 DISCHARGE DATE: 04/06/2017 HOSPITAL COURSE: This is a 71-year-old admitted on 03/31/2017, who presented with abdominal pain. Discharged on 04/06/2017. This is a 71-year-old with history of hypertension, hyperlipidemia, gastroesophageal reflux, who presented with acute onset of abdominal pain that began in the morning about 0730 hours. He was sitting at his desk and actually had symptoms going on a little bit with abdominal pain for most of this year. Dr. Joy is his primary care physician. He has had tests run, such as barium swallow, gastric emptying test, scheduled to see Dr. Serrano as an outpatient. Anyway, he presented and found to have acute pancreatitis, suspect this is alcohol- related pancreatitis. He resolved with conservative measures. Held him n.p.o., IV fluids. He did have a partial small bowel ileus and this improved, as well as the pancreatitis improved. [place] he could go home on 04/06/2017 and wanted go home. He will follow with Dr. Serrano. Told him to stay on a low-fat, soft GI diet. We will have him hold his aspirin and Mobic. He will get to go home. We will keep him on his previous medications, but hold the Mobic and aspirin. Follow up with Dr. Serrano, follow up with Dr. Joy. Then, several long discussions about how he cannot drink any alcohol at all. He understands even a little bit could set him back. There is concern that he had a little bit of necrotizing pancreatitis in the tail of the pancreas, but clinically he is improved. Enzymes have gone down and I feel he could go home on 04/06/2017. cc: Xu Clifton MD
--- NOTE | 2017-04-06 16:42 | PROGRESS NOTE ---
DATE: 04/06/2017 SUBJECTIVE: Patient currently resting in a chair. His is at bedside. He has been feeling better. He is tolerating diet well. He denies any nausea, vomiting, vomiting blood. He denies any abdominal pain, fevers, rigors, or chills. He is passing gas this morning. His last bowel movement yesterday. OBJECTIVE: Vital signs: Temperature 99, pulse rate of 113, Blood Pressure 143/ 87, saturating 98% on room air. General: Moderately built, moderately nourished, sitting in a chair, in no acute distress. HEENT: Mild pallor. No icterus. Neck: Supple. Abdomen: Soft, nontender, nondistended. Bowel sounds noted. No rebound. Extremities: No cyanosis, clubbing, edema. Neurologic: He is alert, awake, oriented. Extremities: No cyanosis, clubbing. Positive bilateral edema noted which is getting better. Neurologic: He is alert, awake, oriented. LABS: Hemoglobin and hematocrit are 9.2 and 29, white count of 8.4, platelet count of 184,000, MCV of 96.3. INR 1.1. Sodium 147, potassium 3.9, chloride 110, bicarb 21, anion gap 13, BUN of 17, creatinine 0.5, glucose of 80, calcium 7.6, total bilirubin is 0.65, AST 24 , ALT 22, alkaline phosphatase 54, total protein is 4.3, albumin of 2.4, globulin of 1.9. Lipase of 37. IMPRESSION AND PLAN: 1. Alcoholic pancreatitis which is now resolved. The patient will be on a soft diet and advance as tolerated. The patient will be on a low-fat diet for next 6 weeks. 2. Alcoholism. The patient will continue a multivitamin once daily and will continue to abstain from alcohol completely. This was discussed with the patient and family at bedside. 3. Ileus which is now resolved. 4. Anemia. Will continue to watch. He will continue a multivitamin. As an outpatient he will benefit from an EGD and colonoscopy to workup his anemia. 5. Gastrointestinal prophylaxis with PPIs. At home he has been taking Nexium for reflux disease. 6. Tachycardia which could be secondary to alcohol withdrawal. Although, the patient was told to come back to the hospital and talk to his family doctor if he starts feeling symptoms of racing heart, dizziness, or any other new symptoms. The patient will also call us to schedule an appointment. The above plan was discussed with the patient and family at bedside and all questions answered. cc: MD Xu Rocha MD Gregory S. Cheatham, MD MTDD
== END 2017-04-06 11:23 | disposition home or self-care (01) ==
LOC: ED 10:17 → SUATTDRO 14:04 → 3N 14:04
PROVIDERS: ATTEND Emergency Medicine

== ENCOUNTER 2017-04-30 08:40 | Inpatient (IN) ==
[2017-04-30 09:07] LABS: MANUAL DIFF NEEDED? NO
[2017-04-30 09:11] LABS: BASO% 0.2 % (0.0-0.8); EOS# 0.21 X1000 (0.0-0.7); EOS% 4.3 % (0.0-10.0); HEMATOCRIT 37.1 % (42.0-52.0); HEMOGLOBIN 11.8 g/dL (14.0-18.0); LYMPH# 1.86 X1000 (1.2-3.4); LYMPH% 37.7 % (20.5-51.1); MCH 29.3 PG (27-31); MCHC 31.8 g/dL (33-37); MCV 92.1 FL (81-99); MONO# 0.36 X1000 (0.11-0.59); MONO% 7.3 % (1.7-9.3); MPV 9.5 FL (7.4-10.4); NEUT% 50.5 % (42.2-75.2); PLT 283 X1000 (130-400); RBC 4.03 XMIL (4.7-6.1)
[2017-04-30 09:33] LABS: URINE CULTURE NEEDED? NO; URINE MICRO REVIEW NEEDED? NO; URINE SOURCE CLEAN CATCH
[2017-04-30 09:39] LABS: AGAP 12; ALBUMIN 4.1 g/dL (3.5-5.0); ALKALINE PHOSPHATASE 69 U/L (32-122); AMYLASE 348 U/L (20-200); BUN 10 mg/dL (8-22); CALCIUM 9.8 mg/dL (8.8-10.2); CHLORIDE 102 mmol/L (98-107); COSMO 279; GOT 17 U/L (10-34); GPT 11 U/L (10-44); LIPASE 173 U/L (13-60); POTASSIUM 4.1 mmol/L (3.5-5.1); SODIUM 140 mmol/L (136-145); TCO2 26 mmol/L (25-35); TOTAL BILIRUBIN 0.35 mg/dL (0.20-1.00); TOTAL PROTEIN 6.8 g/dL (6.3-8.3)
[2017-04-30 09:42] LABS: BILIRUBIN URINE NEGATIVE (NEGATIVE); BLOOD URINE NEGATIVE (NEGATIVE); COLOR YELLOW; GLUCOSE URINE NEGATIVE (NEGATIVE); LEUKOCYTES URINE NEGATIVE (NEGATIVE); NITRITE URINE NEGATIVE (NEGATIVE); PH URINE 7.5; PROTEIN URINE NEGATIVE (NEGATIVE); TURBIDITY URINE CLEAR (CLEAR); UROBILINOGEN URINE NORMAL (NORMAL)
[2017-04-30 09:43] LABS: UR EPITHELIAL CELLS <10 /HPF (<10); URINE BACTERIA NEGATIVE /HPF; URINE RBC <10 /HPF (<10); URINE WBC <10 /HPF (<10)
--- NOTE | 2017-04-30 11:28 | Diag Imaging Result Doc PS360 ---
EXAM: ABDOMEN/PELVIS W/CONTRAST INDICATION: abd pain/pancreatitis COMPARISON: 03/31/2017 FINDINGS: There is mild subsegmental atelectasis and/or scarring at the lung bases. The peripancreatic inflammatory changes related to acute pancreatitis seen on the previous study have improved. However, there has been development of a prominent pancreatic pseudocyst arising from the pancreatic tail that measures up to 9.1 x 4.8 cm axially. There is a smaller second pancreatic pseudocyst arising from the tip of the pancreatic tail that measures up to 5.9 x 3.6 cm. There is still residual inflammatory stranding around the pancreas. The gallbladder is grossly unremarkable by CT. There is no evidence of biliary dilatation. There is no evidence of portal vein thrombosis. There is no evidence of splenic artery pseudoaneurysm. There is a small amount of residual fluid that is layering in the pelvis. There are several mildly gas distended loops of small bowel, probably representing ileus at the left side of the abdomen. There is nothing to indicate bowel obstruction. There are a few stable renal hypodensities that likely represent cysts. There is uncomplicated diverticulosis coli. The remainder of the solid viscera of the abdomen and pelvis and the remainder of the GI tract are essentially unremarkable. IMPRESSION: 1.Interval improvement of inflammatory changes associated with the pancreas consistent with acute pancreatitis that was seen on the previous study. However, there are residual inflammatory changes. 2.Interval development of a couple fairly prominent pancreatic pseudocysts. 3.Mild distention of several loops of small bowel on the left, likely representing ileus. 4.Other incidental/nonacute findings detailed above. Electronically signed by Fransisco Kumar 04/30/2017 11:26 AM
[2017-04-30] MEDS ORDERED: NS 1,000 ML IV SCH (11:52)
[2017-04-30] MEDS ORDERED: NS 3,000 ML IV ONE (11:52)
--- NOTE | 2017-04-30 12:07 | Diag Imaging Result Doc PS360 ---
EXAM: FLAT/UPRIGHT ABD/1 VIEW CHEST INDICATION: abd pain TECHNIQUE: 3 views COMPARISON: Chest radiograph dated 04/01/2017 FINDINGS: There are nonspecific small bowel gas patterns with only mild distention at the left side of the abdomen. There is nothing that would necessarily indicate obstruction. There is no evidence of large volume free abdominal gas. There has been a prior left hip arthroplasty. There is a small metallic foreign body projecting over the left side of the pelvis. This can be seen in the pelvis on previous CTs and is chronically embedded. There is mild subsegmental atelectasis versus scarring at the left lung base. The lungs are grossly clear, otherwise. There is no discrete pleural fluid collection or pneumothorax. The cardiomediastinal silhouette and central vasculature are grossly unremarkable. IMPRESSION: 1.Nonspecific abdomen. 2.Mild atelectasis versus scarring at the left lung base. Electronically signed by Fransisco Kumar 04/30/2017 12:05 PM
[2017-04-30] MEDS ORDERED: APRESOLINE IV PRN (13:53)
[2017-04-30] MEDS ORDERED: LABETALOL IV PRN (13:53)
[2017-04-30] MEDS ORDERED: PROTONIX IV SCH (13:53)
[2017-04-30] MEDS: SODIUM CHLORIDE 0.9% INJ SCH ×2 (15:36→20:24)
--- NOTE | 2017-04-30 16:39 | HISTORY AND PHYSICAL ---
PRIMARY CARE PHYSICIAN: Skinny Joy MD CHIEF COMPLAINT: Abdominal pain. HISTORY OF PRESENT ILLNESS: Mr. Ata Wheat is a 71-year-old male with a history of hypertension and GERD, hyperlipidemia, who was discharged from our service around a month ago for acute pancreatitis secondary to what we felt was alcohol. During that admission he stayed for few days with a bowel rest, fluids, pain medication. He was discharged home with instructions to follow up with Dr. Serrano in 6 weeks. Over the past month, he has been in his normal state of health. He denies that he has had any alcohol and that he has been following diet recommended by Dr. Serrano. However, this morning he woke up with acute [id number] abdominal pain, sharp in nature and nonradiating. This has not been associated with vomiting or diarrhea. In fact, he has had some mild constipation. When he got to the ER today, his lipase was only noted to be 173, but his CT abdomen and pelvis showed a new pseudocyst on his pancreas. There is also an ileus on the left. as well as residual fluid layering in the pelvis. As such, we are going to admit him for further treatment and evaluation. PAST MEDICAL HISTORY: 1. Hypertension. 2. Gastroesophageal reflux disease. 3. Hyperlipidemia. 4. Alcohol dependence, partial sustained remission. PAST SURGICAL HISTORY: Hernia repair, left hip replacement, benign esophageal mass excised. SOCIAL HISTORY: Patient is . His at the bedside. 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 He has not had any alcohol since discharge per his report. There is no tobacco or drug use. FAMILY HISTORY: Noncontributory. REVIEW OF SYSTEMS: Fourteen-point review of systems obtained and found to be negative with the exception of the HPI. ALLERGIES: No known drug allergies. HOME MEDICATIONS: Nexium 40 mg daily. Prinivil 20 mg daily. Centrum vitamin daily. PHYSICAL EXAMINATION: VITAL SIGNS: Blood pressure is 163/85, heart rate 105, respiratory rate 18, O2 saturation 100% on room air. Temperature is 97.9 degrees. GENERAL: Thin- appearing 71-year-old male, lying in hospital bed. No acute distress. NEUROLOGIC: The patient is awake, alert, and oriented. He follows commands without focal deficits. HEENT: Head is atraumatic and normocephalic. His pupils are equal, round, and reactive to light. His oral mucosa is moist. Trachea is midline. No JVD or carotid bruits. CHEST: Clear to auscultation bilaterally. CARDIOVASCULAR: Regular rate and rhythm. S1-S2 is noted. No murmurs, gallops, clicks, rubs. GI: Right upper quadrant tenderness to palpation, but belly is soft and nondistended. Bowel sounds are hypoactive. EXTREMITIES: Without edema, clubbing or cyanosis. 2+ pulses bilaterally. DIAGNOSTIC DATA: Abdomen and pelvis CT shows multiple fairly prominent pancreatic pseudocysts with ileus on the left and residual fluid laying in the pelvis. LABORATORY DATA: WBC 4.94, hemoglobin 11.8, hematocrit 37.1, platelet count 283,000. Sodium 140, potassium 4.1, chloride 102, CO2 30. CO2 26, anion gap 12, BUN 10, creatinine 0.7, glucose 110, calcium 9.8, and LFTs within normal limits. Amylase 348. Lipase 173. UA is negative. ASSESSMENT AND PLAN: 1. Recurrent pancreatitis with new pseudocyst and ileus on the left. The patient will be kept nothing per oral. We will give him 3 L of normal saline fluid bolus and then give him a constant rate of 175 mL an hour to prevent volume depletion and acute kidney injury. We will consult Dr. Serrano as well. We will start IV Protonix and check daily x-rays of the abdomen. We will also check an alcohol level. Although the patient states that he has been in remission over the past month. 2. Gastroesophageal reflux disease: Chronic. We will start IV Protonix. 3. Hypertension. We will treat with p.r.n. IV medications for now. 4. Anemia, chronic, we will continue to monitor. He might need some iron replacement. 5. DVT prophylaxis with Lovenox. Further recommendations to follow. Dictated by BRIJESH Reynolds for Vanna Andrew MD cc: BRIJESH Reynolds MD Manish Arora, MD Gregory S. Cheatham, MD
[2017-04-30] MEDS: DILAUDID IV PRN ×2 (18:06→23:47)
[2017-04-30] MEDS: LR 1,000 ML IV SCH ×2 (18:19→23:47)
--- NOTE | 2017-04-30 19:29 | CONSULTATION ---
DATE OF CONSULTATION: 04/30/2017 REFERRING PHYSICIAN: Vanna Andrew M.D. PRIMARY CARE PHYSICIAN: Dr. Skinny Joy M.D. PRIMARY HOROLOGIST APPRENTICE: Dr. Joshua Serrano M.D. INDICATION FOR CONSULTATION: Abdominal pain. HISTORY OF PRESENT ILLNESS: The patient is a 71-year-old white male who was recently admitted 1 month ago for alcohol-induced acute pancreatitis. Since his hospital discharge , the patient has stopped drinking any alcoholic beverages. He was doing well until he was aroused from sleep this morning with severe right upper quadrant pain that was sharp and nonradiating. He denies nausea with vomiting, diarrhea, and fever. He does describe some new mild constipation. He presented to the emergency room for evaluation of his right upper quadrant pain and was found to have an elevated lipase at 173. His CT scan was remarkable for the presence of new pseudocyst on his pancreas and ileus as well as residual fluid in the pelvis. His labs are notable for anemia. He is admitted for further evaluation. PAST MEDICAL HISTORY: 1. Acute pancreatitis in March of 2017. 2. Hypertension. 3. GERD. 4. Hyperlipidemia. 5. Alcohol liver disease. PAST SURGICAL HISTORY: 1. Hernia repair. 2. Left hip replacement. 3. Resection of a benign esophageal mass. SOCIAL HISTORY: The patient is . 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 He denies alcohol ingestion since his last admission. Prior to that, he was drinking a minimum of 2 shots of whiskey per day with increased intake on special occasions. He denies tobacco or recreational drug use. FAMILY HISTORY: Negative for malignancy. REVIEW OF SYSTEMS: Notable in that the patient continues to have right upper quadrant pain but he states that it is less. He reports flatus but no bowel movement. MEDICATION ALLERGIES: None. HOME MEDICATIONS: 1. Prinivil. 2. Multivitamin. 3. Nexium. PHYSICAL EXAMINATION: General: On exam, he is in no acute distress. Vital Signs: His blood pressure is 141/86, pulse 92, respiration 20, temperature of 97.9 degrees. HEENT: Negative for jaundice. His conjunctivae are normal. His oropharyngeal mucosa membranes are moist. Pulmonary: Lungs are clear to auscultation with normal inspiratory effort. Cardiovascular Examination: Reveals regular rate and rhythm with no gallops or rubs. Abdominal Exam: Reveals normoactive bowel sounds. The abdomen is soft with moderate right upper quadrant tenderness but no rebound or guarding. Extremities: Bilaterally are negative for cyanosis, clubbing, or edema. OBJECTIVE DATA: Reveals a hemoglobin of 11.8 with hematocrit of 37.1 and a white count of 4.94. He has 238,000 platelets. Sodium is 140, potassium 4.1, chloride 102, CO2 26, BUN 10, creatinine 0.7, glucose 110. Calcium is 9.8, total bilirubin 0.35, AST 17, ALT 11, alkaline phosphatase 69, total protein 6.8, and albumin 4.1. His amylase is 348 with a lipase of 173 and a CRP of 0.87. IMPRESSIONS: 1. Acute recurrent pancreatitis. 2. Pancreatic pseudocyst. 3. Alcohol liver disease. 4. Ileus. 5. Anemia, normocytic. RECOMMENDATION: 1. The patient is currently NPO with bowel rest. I would continue this for the time being. 2. He is currently receiving normal saline as his IV replacement fluid. I recommend changing his IV fluids to lactated Ringer's which has been shown to be slightly more effective in rehydrating patients with acute pancreatitis. 3. Continue Protonix 40 mg but increase the dose to 40 mg q.12 hours to maximize suppression of any acid production. 4. The patient reports constipation. If this continues, we may want to consider a Dulcolax suppository and possibly Miralax. 5. Dr. Serrano will return in the morning to assume care. 6. Additional recommendations will be per Dr. Serrano. cc: MD Vanna Palma MD Gregory S. Cheatham, MD Manish Arora, MD MTDD
[2017-04-30] MEDS: PROTONIX IV SCH (20:23)
--- NOTE | 2017-05-01 07:51 | Diag Imaging Result Doc PS360 ---
ABDOMEN FLAT/UPRIGHT - 05/01/2017 INDICATION: ileus TECHNIQUE: Two views COMPARISON: 04/30/2017 FINDINGS: There is contrast throughout the colon and appendix. There is slight decrease in the borderline loops of dilated small bowel mainly in the left side of the abdomen suggesting ileus. No free air. No new abnormalities. IMPRESSION: Slight improvement in the mild ileus. Electronically signed by Ramez Bryan 05/01/2017 7:49 AM
[2017-05-01 08:03] LABS: HEMATOCRIT 31.6 % (42.0-52.0); HEMOGLOBIN 9.7 g/dL (14.0-18.0); MCH 29.8 PG (27-31); MCHC 30.7 g/dL (33-37); MCV 96.9 FL (81-99); MPV 10.1 FL (7.4-10.4); RBC 3.26 XMIL (4.7-6.1)
[2017-05-01 08:13] LABS: AGAP 12; BUN 8 mg/dL (8-22); CALCIUM 8.8 mg/dL (8.8-10.2); CHLORIDE 102 mmol/L (98-107); COSMO 278; LIPASE 110 U/L (13-60); POTASSIUM 4.1 mmol/L (3.5-5.1); SODIUM 141 mmol/L (136-145); TCO2 27 mmol/L (25-35)
[2017-05-01] MEDS: LR 1,000 ML IV SCH ×5 (10:11→22:40)
[2017-05-01] MEDS: LOVENOX SUBQ SCH (10:12)
--- NOTE | 2017-05-01 10:58 | PROGRESS NOTE ---
DATE: 05/01/2017 SUBJECTIVE: The patient states that his abdominal pain has improved. OBJECTIVE: Vital Signs: Temperature 97.5 degrees, blood pressure 154/82, heart rate 90, respirations 18, O2 saturations 97% on room air. General: This is an elderly male, lying in bed, in no acute distress. Head: Normocephalic, atraumatic. Heart: S1, S2 normal. Regular rate and rhythm. Lungs: Clear to auscultation bilaterally. No wheezing. No rales. No rhonchi. Abdomen: Positive bowel sounds. Soft, nontender, nondistended. Extremities: No edema. No cyanosis. No calf tenderness. Neurologic: The patient is alert and oriented x3. LABS: Sodium 141, potassium 4.1, chloride 102, CO2 27, BUN 8, creatinine 0.7, glucose 76. Lipase 110. ASSESSMENT AND PLAN: 1. Acute pancreatitis with pancreatic pseudocyst formation. We will keep the patient NPO, continue on IV fluid hydration as well as p.r.n. antiemetics and pain medication. Further recommendations as per the lands resource manager. 2. Hypertension. We will cover the patient with p.r.n. labetalol. 3. Gastrointestinal prophylaxis. Continue on IV Protonix. 4. Deep vein thrombosis prophylaxis. Continue on Lovenox. cc: Vanna Andrew MD
[2017-05-01] MEDS: PROTONIX IV SCH ×2 (12:19→20:34)
--- NOTE | 2017-05-01 13:03 | Diag Imaging Result Doc PS360 ---
US ABDOMEN-COMPLETE - 05/01/2017 INDICATION: evaluate the Gall bladder for sludge COMPARISON: CT from yesterday FINDINGS: There are large peripancreatic fluid collections stable from the CT from yesterday. These are compatible with pseudocysts. These are at the pancreatic body and tail. There are some shadowing gallstones in the gallbladder measuring up to about 8 mm. The spleen is enlarged. The spleen measures about 12.5 x 6.2 cm. 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 The liver and both kidneys are normal. Common bile duct measures 3 mm. Aorta, IVC, and main portal vein are patent. IMPRESSION: 1. Grossly stable pancreatic pseudocysts. 2. Slight splenomegaly. 3. Gallstones in the gallbladder. Electronically signed by Ramez Bryan 05/01/2017 1:01 PM
--- NOTE | 2017-05-01 15:19 | PROGRESS NOTE ---
DATE: 05/01/2017 SUBJECTIVE: Patient is currently resting in bed. His abdominal pain is improving. He is passing flatus. He denies any nausea, vomiting. Denies any fevers, rigors, chills. The CT scan reports were discussed the patient and family at bedside. OBJECTIVE: Vital signs: Temperature of 97.5 degrees, pulse rate of 90, respiratory 18, blood pressure 154/82, saturating 97% on room air. Body weight of 135 pounds, BMI 20.8 kg/m2. General: Thinly built, lying in bed, in no acute distress. HEENT: Mild pallor. No icterus. Pupils equal, react to light. Neck: Supple. Chest: Decreased. Cardiac: Regular rhythm. No murmur. Abdomen: Discomfort in the epigastric region. No rebound. No guarding. Bowel sounds are present but hypoactive. Extremities: No cyanosis, clubbing, edema. Neurologic : Alert, awake, oriented. LABORATORY: Hemoglobin and hematocrit are 9.7 and 31.6, white count 4.16, platelet count of 172,000, MCV of 96.9. Sodium 140, potassium 4.1, chloride 102, bicarb 27, anion gap of 12, BUN of 8, creatinine 0.7, glucose of 76, calcium is 8.8, AST 17, ALT 11, alkaline phosphatase 69. Total protein 6.8, albumin of 4.1. CRP is 0.87. Amylase of 348. Lipase of 173 on admission and the lipase has gone down to 110. Urinalysis is unremarkable. CT scan of the abdomen and pelvis done on 04/30/2017 showed interval improvement of the inflammatory changes associated with the pancreas consistent with acute pancreatitis that was seen on previous study. However, there are residual inflammatory changes. Interval development of a couple fairly prominent pancreatic pseudocyst measuring 9.1 and 4.8 cm in the pancreatic tail and 5.9 and 3.6 cm from the tip of the pancreatic tail. No evidence of biliary ductal dilation. No evidence of portal vein thromboses. No evidence of any splenic artery pseudoaneurysm. Subsegmental atelectasis, scarring in the lung bases. Small amount of fluid in the pelvis. Several mildly gas distended loops of small bowel, probably representing ileus of the left side of the abdomen. A few stable renal cysts. Uncomplicated diverticulosis of the colon. Gallbladder is grossly unremarkable by CT. IMPRESSION AND PLAN: 1. Severe acute pancreatitis diagnosed on 04/01/2017, treated conservatively. Was secondary to alcoholism. Has quit for a month. Now complicated with another attack of pancreatitis and evidence of a pancreatic pseudocyst as described above in the tail of the pancreas. 2. Anemia. 3. Diverticulosis of the colon. 4. Renal cysts. 5. Ileus secondary to pancreatitis. RECOMMENDATIONS: 1. Since the patient has quit alcohol completely for almost a month and he started having acute onset of symptoms of abdominal pain in the periumbilical region starting few days ago, this is consistent with a new episode of pancreatitis. So we will evaluate his gallbladder as well. We will check an ultrasound of the abdomen to evaluate the gallbladder and also check a HIDA scan to evaluate the gallbladder function. 2. The patient will be started on clear liquid diet after the above imaging test. 3. Will continue on IV fluids, IV PPIs, IV antiemetics, IV pain control. 4. Since the patient has a large pancreatic pseudocyst we will have to re-image him in 6 weeks to evaluate for maturation of the wall of the pancreatic pseudocyst. Depending on the size of pancreatic pseudocysts in 6 weeks will decide if he needs drainage endoscopically EUS guided at [facility]. 5. On discharge the patient will continue on a low-fat diet and continue to abstain from alcohol. But if ultrasound and HIDA scan shows gallbladder dysfunction, we may have to call for a surgery consult for possible cholecystectomy. The above plan was discussed with the patient and family at bedside and all questions were answered. cc: MD Vanna Rocha MD Gregory S. Cheatham, MD MTDD
[2017-05-01 15:59] LABS: INR 1.08; PROTIME 11.4 Seconds (9.2-11.7)
--- NOTE | 2017-05-01 16:01 | Diag Imaging Result Doc PS360 ---
EXAM: HIDA SCAN W/O EJECT. FRACTION HISTORY: Eval GB function TECHNIQUE: Patient was injected with 5.9 mCi of technetium 99m Choletec and scanned for 60 minutes. Anterior and lateral imaging is obtained after another 35 minutes. COMMENT: The gallbladder is not convincingly demonstrated throughout the study. There is free flow of activity into the duodenum. There may be some slight gastric reflux. IMPRESSION: The patency of the cystic duct is not demonstrated. Possibility of acute cholecystitis cannot be excluded. Electronically signed by Edi Mendez 05/01/2017 3:59 PM
[2017-05-01] MEDS: DILAUDID IV PRN ×2 (16:26→22:06)
[2017-05-01] MEDS: SODIUM CHLORIDE 0.9% INJ SCH (20:34)
--- NOTE | 2017-05-01 20:50 | CONSULTATION ---
DATE OF CONSULTATION: 05/01/2017 HISTORY OF PRESENT ILLNESS: This is a 71-year-old man who had been admitted early in March with acute pancreatitis. It was felt at that point to be alcohol related. He resolved this episode and went home, and has been abstinent since that point from alcohol. However, he developed worsening pain in the epigastrium and some nausea associated with this prompting readmission. A CT scan was obtained that showed a large pseudocyst in the body of the pancreas. He has been treated conservatively for this in the hospital. He did have mild elevation in his pancreatic enzymes this admission but he has been down-trending. He denies any nausea or vomiting. His bowel function otherwise has been normal. No jaundice. No fevers. In speaking with the patient he had some colicky pain looking back for the last several months. His feels it is similar to gallbladder pain that she has had. He has had an approximately 30 pound weight loss over this period as well. Ultrasound was obtained today that showed gallstones and ejection fraction showed nonfilling of the gallbladder which brings in the question of possibility that gallstones are related to his pancreatitis. He has not really had any binge drinking. He is a daily alcohol user but this has been stable for many months. PAST MEDICAL HISTORY: Hypertension, GERD, hyperlipidemia. PAST SURGICAL HISTORY: He had a left inguinal hernia, esophageal cystectomy, left hip replacement. SOCIAL HISTORY: He is . 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 He was drinking 2 shots a day prior to this but nothing since. No alcohol or other drugs. FAMILY HISTORY: Negative for cancer. REVIEW OF SYSTEMS: Ten point negative other than what is mentioned in HPI. MEDICATIONS: Negative for anticoagulant. PHYSICAL EXAMINATION: Vital Signs: Temperature is 97.7 degrees, pulse 90, blood pressure 173/85, oxygen saturation 100% on room air. General: He is alert, in no acute distress. HEENT: No scleral icterus. There is no cervical lymphadenopathy or supraclavicular masses. Cardiovascular: Normal rate, regular rhythm. Pulmonary: No increased work of breathing. Abdomen: Soft, nontender, nondistended. Integumentary: Warm, dry. I do not see any jaundice or rashes. Musculoskeletal: Muscle tone is normal throughout. LABS: White count 4, hematocrit 31, INR is 1.08, creatinine 0.7, glucose is 76 , potassium 4.1, yesterday's bilirubin 0.35, AST and ALT 17 and 11, alkaline phosphatase 69, amylase and lipase at 348 and 173, down to 110 today on his lipase. Urinalysis is negative. CT scan of abdomen and pelvis shows pancreatic pseudocyst development in the pancreatic tail, one is 9 cm and one is 5.9 cm. There is some residual stranding. Abdominal ultrasound from 05/01 shows stable pseudocysts, slight splenomegaly secondary to splenic vein occlusion, gallstones in the gallbladder. HIDA scan shows nonfilling of the gallbladder but free flow in the duodenum. ASSESSMENT AND PLAN: This is a 71-year-old male with either gallstone or alcohol-related pancreatitis, now with pseudocyst. I do not see any signs of infection here, however, he does have gallstones and the question arises: Was this the source of his pancreatitis ? He does have what sounds like biliary colic symptoms prior to this episode of pancreatitis. I had a long discussion with patient about the pathophysiology of pancreatitis and pseudocyst disease. Regarding pseudocysts he seems relatively asymptomatic. We will need to follow these over the next 6 weeks with repeat imaging to monitor whether he would benefit from enteric drainage of these cysts. Regarding his gallbladder, I do think he would benefit from cholecystectomy to prevent a future episode of pancreatitis. Given his mild elevation of pancreatic enzymes I recommended observation for the next 24 hours to ensure resolution of his pancreatitis and that there is not an acute episode currently and plan for laparoscopic cholecystectomy with cholangiogram this admission to rule out an ongoing distal obstruction. Patient and understand and will follow him up intensively for laparoscopic cholecystectomy on Monday pending his clinical progress. cc: Saurav Reyes MD [facility]
[2017-05-02] MEDS: LR 1,000 ML IV SCH ×4 (02:43→18:12)
[2017-05-02] MEDS: DILAUDID IV PRN ×2 (02:43→21:11)
[2017-05-02 06:42] LABS: HEMOGLOBIN 9.8 g/dL (14.0-18.0); MCH 28.6 PG (27-31); MCHC 30.6 g/dL (33-37); MCV 93.3 FL (81-99); RBC 3.43 XMIL (4.7-6.1)
[2017-05-02 07:03] LABS: AGAP 9; BUN 5 mg/dL (8-22); CALCIUM 8.9 mg/dL (8.8-10.2); CHLORIDE 102 mmol/L (98-107); COSMO 276; LIPASE 117 U/L (13-60); POTASSIUM 4.1 mmol/L (3.5-5.1); SODIUM 140 mmol/L (136-145); TCO2 29 mmol/L (25-35)
--- NOTE | 2017-05-02 08:11 | Diag Imaging Result Doc PS360 ---
EXAM: ABDOMEN FLAT/UPRIGHT - 05/02/2017 HISTORY: ileus TECHNIQUE: Portable supine and upright abdomen COMPARISON: 05/01/2017 FINDINGS: There is residual oral contrast in the colon and rectum, which is decreased mildly. There is mild gaseous small bowel distention, which is increased mildly. IMPRESSION: Residual oral contrast in colon and rectum. Nonspecific mild gaseous small bowel distention. Electronically signed by Ravindra Lazar 05/02/2017 8:09 AM
[2017-05-02] MEDS: LOVENOX SUBQ SCH (08:32)
[2017-05-02] MEDS: SODIUM CHLORIDE 0.9% INJ SCH ×2 (08:32→21:10)
[2017-05-02] MEDS: PROTONIX IV SCH ×2 (08:32→21:10)
--- NOTE | 2017-05-02 11:27 | PROGRESS NOTE ---
DATE: 05/02/2017 SUBJECTIVE: Feels well. No nausea or vomiting. No more pain. He is tolerating clear liquids. OBJECTIVE: No fevers. No tachycardia. Blood pressure 161/70. Oxygen saturation 96% on room air. General: He is alert. There is no scleral icterus on his head and neck exam. Cardiovascular: Normal rate. Regular rhythm. Abdomen is soft, nontender, nondistended. LABORATORY DATA: White count remains normal at 3, hematocrit 32, creatinine 0.6. Lipase is stable at 117. ASSESSMENT AND PLAN: A 71-year-old male with an episode of acute pancreatitis a month ago. He developed a pseudocyst in the tail of the pancreas. He is also found have gallstones which is possible and likely the etiology of his original pancreatitis, but alcohol could have been a factor as well. I had a long discussion with the family the risks, benefits, and alternatives including bleeding, infection, bile leak, common bile duct, damage to other structures, and any conversion to open were all discussed and they consent to laparoscopic cholecystectomy with cholangiogram tomorrow. We also discussed possibly requiring ERCP if there is retained stone noted. We also discussed the fact that this is not going to do anything for pseudocyst at this point and that we will need to follow this over the next 6 weeks as it matures to determine if he needs any kind of enteric drainage procedure. We will continue to follow along. cc: Saurav Reyes MD
--- NOTE | 2017-05-02 15:01 | PROGRESS NOTE ---
DATE: 05/02/2017 SUBJECTIVE: This patient states that he is feeling better, he is not complaining of abdominal pain today. OBJECTIVE: Vital Signs: Temperature 97.8 degrees, pulse 86, respiratory rate 16, blood pressure 138/71, oxygen saturation 100% on room air. HEENT: Head normocephalic. No trauma. PERRLA. Neck: Supple. No JVD. No masses. Central trachea. Chest: Clear to auscultation. No wheezing or rales. Abdomen: Soft, mild tenderness to palpation at the level of the suprapubic area. Extremities: No edema. No clubbing. No cyanosis. Neurological: The patient is alert and oriented x3. No focal deficits. LABORATORY: WBC 3.9, hemoglobin 9.8, hematocrit 32, platelets 183,000. Sodium 140, potassium 4.1, chloride 102, bicarbonate 29, BUN 5, creatinine 0.6, glucose 83, calcium 8.9, magnesium 1.8. ASSESSMENT AND PLAN: 1. Acute pancreatitis with pancreatic pseudocyst formation. Continue with the same management. He is getting better. He is tolerating p.o.. Gastroenterology Department and Surgery Department is following this patient. 2. Cholelithiasis. This patient hopefully will get a laparoscopic cholecystectomy tomorrow. He will be NPO after midnight. I talked to the patient about it and he seems to understand. Also, the risk and benefits of the surgery has been explained. 3. Hypertension. Continue with the same management for now. 4. Gastrointestinal prophylaxis. Continue with IV Protonix. 5. Deep vein thrombosis prophylaxis. Continue with Lovenox. It is going to be held tomorrow. cc: Thee Manzano MD
[2017-05-03] MEDS: LR 1,000 ML IV SCH ×4 (02:17→16:47)
[2017-05-03 06:01] LABS: MANUAL DIFF NEEDED? NO
[2017-05-03 06:06] LABS: BASO% 0.3 % (0.0-0.8); EOS# 0.24 X1000 (0.0-0.7); EOS% 6.1 % (0.0-10.0); HEMATOCRIT 34.4 % (42.0-52.0); HEMOGLOBIN 10.8 g/dL (14.0-18.0); LYMPH# 1.38 X1000 (1.2-3.4); LYMPH% 35.3 % (20.5-51.1); MCHC 31.4 g/dL (33-37); MCV 92.5 FL (81-99); MONO# 0.34 X1000 (0.11-0.59); MONO% 8.7 % (1.7-9.3); MPV 9.4 FL (7.4-10.4); NEUT% 49.6 % (42.2-75.2); PLT 199 X1000 (130-400); RBC 3.72 XMIL (4.7-6.1)
[2017-05-03 06:43] LABS: AGAP 12; ALBUMIN 3.6 g/dL (3.5-5.0); ALKALINE PHOSPHATASE 63 U/L (32-122); BUN 4 mg/dL (8-22); CALCIUM 9.3 mg/dL (8.8-10.2); CHLORIDE 103 mmol/L (98-107); COSMO 283; GOT 17 U/L (10-34); GPT 9 U/L (10-44); POTASSIUM 3.8 mmol/L (3.5-5.1); SODIUM 143 mmol/L (136-145); TCO2 28 mmol/L (25-35); TOTAL BILIRUBIN 0.49 mg/dL (0.20-1.00); TOTAL PROTEIN 6.1 g/dL (6.3-8.3)
[2017-05-03] MEDS: PROTONIX IV SCH ×2 (08:02→21:33)
[2017-05-03] MEDS: SODIUM CHLORIDE 0.9% INJ SCH ×2 (08:02→21:33)
--- NOTE | 2017-05-03 11:49 | PROGRESS NOTE ---
DATE: 05/03/2017 SUBJECTIVE: This patient states that he is feeling better. He is not complaining of abdominal pain, shortness of breath, or chest pain at this moment. OBJECTIVE: Vital Signs: Temperature 98 degrees, pulse 80, respiratory rate 18, blood pressure 154/84, oxygen saturation 100% on room air. HEENT: Head normocephalic. No trauma. PERRLA. Neck: Supple. No JVD. No masses. Central trachea. Chest: Clear to auscultation. No wheezing. No rales. Abdomen: Soft, nontender, nondistended. No hepatosplenomegaly. Extremities: No edema. No clubbing. No cyanosis. Neurological: The patient is alert and oriented x3. No focal deficits. LABORATORY: WBC 3.9, hemoglobin 10.8, hematocrit 34.4, platelets 199,000. Sodium 143, potassium 3.8, chloride 103, bicarbonate 28, BUN 4, creatinine 0.7, glucose 116, calcium 9.3, AST 17, ALT 9, alkaline phosphatase 63, lipase 112. ASSESSMENT AND PLAN: 1. Acute pancreatitis with pancreatic pseudocyst formation. Continue with the same management. He is getting better. He is tolerating p.o. Today, he is n.p.o. because he is going to get a laparoscopic cholecystectomy. 2. Cholelithiasis. This patient hopefully will get a laparoscopic cholecystectomy today. 3. Hypertension. Continue with the same management for now. 4. Gastrointestinal prophylaxis. Continue with IV Protonix. 5. Deep vein thrombosis prophylaxis. Continue with Lovenox. This has been held since yesterday. cc: Thee Manzano MD
[2017-05-03] MEDS ORDERED: MARCAINE 0.25% PF/EPI 1:200,000 ONE (13:12)
[2017-05-03] MEDS ORDERED: XYLOCAINE 1% ONE (13:12)
[2017-05-03] MEDS ORDERED: LR 1,000 ML ONE ×2 (13:13→15:40)
[2017-05-03] MEDS ORDERED: SODIUM CHLORIDE 0.9% ONE ×2 (13:13→13:14)
[2017-05-03] MEDS ORDERED: KEFZOL 1 GM/D5W 1 GM/50 ML IVPB ONE (14:10)
[2017-05-03] MEDS ORDERED: FENTANYL ONE (15:31)
[2017-05-03] MEDS ORDERED: DIPRIVAN 1% ONE (15:32)
[2017-05-03] MEDS ORDERED: NEOSTIGMINE ONE (15:39)
[2017-05-03] MEDS ORDERED: XYLOCAINE-MPF 2% ONE (15:40)
[2017-05-03] MEDS ORDERED: ZEMURON ONE (15:40)
[2017-05-03] MEDS ORDERED: ROBINUL ONE (15:40)
[2017-05-03] MEDS: MORPHINE ONE ×3 (15:46→16:52)
--- NOTE | 2017-05-03 16:08 | OPERATIVE NOTE ---
PROCEDURE DATE: 05/03/2017 PREOPERATIVE DIAGNOSIS: Gallstone pancreatitis. POSTOPERATIVE DIAGNOSIS: Gallstone pancreatitis. PROCEDURE: Laparoscopic cholecystectomy with cholangiogram. ESTIMATED BLOOD LOSS: 20 mL. SPECIMENS: Gallbladder. ANESTHESIA: General. COMPLICATIONS: None. ESTIMATED BLOOD LOSS: 20 mL. INDICATIONS: A 71-year-old male, who a month ago had an episode of acute pancreatitis. Initially, it was felt to be alcohol in etiology but he was readmitted recently with development of a pancreatic tail pseudocyst and was found at that point to have gallstones which is more likely the source of his original pancreatitis. Cholecystectomy with cholangiogram was indicated. OPERATIVE FINDINGS: 1. Chronically inflamed gallbladder with small stones noted within. 2. Interpretation of intraoperative cholangiogram. There was a long nondilated cystic duct that was superimposed over the common bile duct. There was rapid flow of contrast into a nondilated common bile duct and into the duodenum with no filling defects other than some physiologic narrowing at the head of the pancreas. We were able to visualize a short segment of the pancreatic duct that appeared normal. After repeat injections, we were able to get reflux into the common hepatic duct, although initially there was preferential flow into the duodenum, and we confirmed that we had, in fact, cannulated the cystic duct. At least the 1st and 2nd degree bilateral radicals were noted. Overall, normal cholangiogram. OPERATIVE NOTE: Risks, benefits, and alternatives discussed with the patient and he consented to procedure. Seen preoperatively and surgery to be performed was confirmed. He was taken to the operating room and placed in supine position. General anesthesia was induced. Preincisional antibiotics confirmed and hair removed with clippers. Abdomen was prepped with chlorhexidine solution and draped in the usual fashion. After time-out was performed, a curvilinear infraumbilical incision was made, and we carried this down to the level of the fascia. The umbilical stalk was elevated with Catalino clamp and incision along the midline was made, and the abdomen was entered in an open controlled fashion. We placed a 12 mm Ian trocar under direct visualization here and insufflated the abdomen to 15 mmHg. We inspected the abdomen. There was no injury to underlying structures. We then placed 3 trocars after infiltration of the peritoneum with local anesthetic. These were 5 mm; one in the epigastric and one in the midclavicular line off the costal margin and one more laterally. I placed the patient in reverse Trendelenburg with left side down. We grasped the gallbladder and retracted it cephalad with locking grasper starting laterally and progressing medially. We stripped down the peritoneum and the adipose tissue overlying the infundibulocystic junction. We did this exposing the cystic duct. Creating the critical view of safety with liver visualized through this. No other structures noted. We clipped the gallbladder side of the cystic duct and made a ductotomy and performed cholangiogram with cholangiogram catheter with above findings. We then triply clipped the duct dividing it, then began removing the gallbladder. There was a small branch entering the gallbladder off the cystic artery. We doubly clipped this and divided it, and there is a larger more substantial branch entering more cephalad that we also doubly clipped here and divided. We removed the gallbladder from the gallbladder fossa with electrocautery with care to prevent rupture of the gallbladder, and this was done successfully. After this, we placed the gallbladder in EndoCatch bag and irrigated the wound. We obtained hemostasis with electrocautery in a few areas that were oozing. Lowered the pressure and confirmed that they were in fact hemostatic. Irrigated the abdomen and suctioned until clear. Inspected the cystic duct stump, and this was then closed with no bile leakage as was the cystic artery. He tolerated this well. We removed the trocars under direct visualization. Deflated the abdomen and brought the gallbladder out through the umbilical incision. We closed the fascia with interrupted 0 Vicryl sutures. Skin was closed 4-0 Monocryl. Dermabond was applied for dressing. Counts correct x2. He tolerated the procedure well with no identified complication. cc: MD PRAVEEN Holloway
[2017-05-03] MEDS: LABETALOL ONE ×2 (16:12→16:52)
[2017-05-03] MEDS ORDERED: APRESOLINE ONE (16:12)
[2017-05-03] MEDS ORDERED: ZOFRAN ONE (16:28)
[2017-05-03] MEDS: ZOFRAN IV PRN ×2 (16:33→21:53)
[2017-05-03] MEDS: DILAUDID IV PRN (21:53)
[2017-05-03] MEDS: PERIDEX MT SCH (22:06)
[2017-05-04] MEDS: ZOFRAN IV PRN ×2 (01:57→06:36)
[2017-05-04] MEDS: DILAUDID IV PRN ×2 (01:57→06:36)
[2017-05-04] MEDS: LR 1,000 ML IV SCH (01:59)
[2017-05-04 06:18] LABS: MANUAL DIFF NEEDED? NO
[2017-05-04 06:23] LABS: BASO% 0.2 % (0.0-0.8); EOS% 3.5 % (0.0-10.0); HEMATOCRIT 32.7 % (42.0-52.0); HEMOGLOBIN 10.1 g/dL (14.0-18.0); LYMPH# 1.37 X1000 (1.2-3.4); LYMPH% 24.1 % (20.5-51.1); MCH 28.7 PG (27-31); MCHC 30.9 g/dL (33-37); MCV 92.9 FL (81-99); MPV 9.5 FL (7.4-10.4); NEUT% 65.2 % (42.2-75.2); PLT 199 X1000 (130-400); RBC 3.52 XMIL (4.7-6.1)
[2017-05-04 06:42] LABS: AGAP 12; BUN 3 mg/dL (8-22); CALCIUM 8.6 mg/dL (8.8-10.2); CHLORIDE 100 mmol/L (98-107); COSMO 278; POTASSIUM 3.6 mmol/L (3.5-5.1); SODIUM 141 mmol/L (136-145); TCO2 29 mmol/L (25-35)
[2017-05-04 07:39] VITALS: BP 169/88
[2017-05-04] MEDS: SODIUM CHLORIDE 0.9% INJ SCH (08:04)
[2017-05-04] MEDS: PROTONIX IV SCH (08:04)
[2017-05-04] MEDS: PERIDEX MT SCH (08:04)
[2017-05-04] MEDS ORDERED: NORCO-7.5 PO PRN (09:53)
--- NOTE | 2017-05-04 11:52 | DISCHARGE SUMMARY ---
ADMISSION DATE: 04/30/2017 DISCHARGE DATE: 05/04/2017 CONSULTATIONS: 1. Dr. Bill Reyes. 2. Dr. Nadine Garcia with Gastroenterology PERTINENT PROCEDURES: 1. Abdomen and pelvis CT showed interval improvement of inflammatory changes associated with the pancreas consistent with acute pancreatitis that was seen on previous study; however, there are residual inflammatory changes with interval development of a couple fairly prominent pancreatic pseudocysts. Mild distention of several loops of small bowel on the left likely representing ileus. 2. Abdominal ultrasound showed grossly stable pancreatic pseudocyst. Slight splenomegaly. Gallstones in the gallbladder. 3. HIDA scan showed the patency of the cystic duct is not demonstrated. Possibility of acute cholecystitis could not be excluded. Follow-up KUB showed residual oral contrast in the colon and rectum. Nonspecific mild gaseous small bowel distention. 4. Laparoscopic cholecystectomy with cholangiogram performed by Dr. Bill Reyes on 05/03/2017. DISCHARGE DIAGNOSES: 1. Acute pancreatitis with pancreatic pseudocyst formation. The patient had been tolerating p.o., stable. 2. Cholelithiasis, status post laparoscopic cholecystectomy performed on 05/03/2017 by dipika Tinsley. 3. Hypertension. Continue with current medications. HOSPITAL COURSE: Mr. Wheat is a 71-year-old male with a history of hypertension, GERD, hyperlipidemia discharged from our service around a month ago for acute pancreatitis secondary to what we felt like was alcohol. During that admission, he stayed for a few days with bowel rest plus his pain medication. Discharged home with instructions to follow up with Dr. Serrano in 6 weeks. Over the past month, he had been in his normal state of health. He denied any alcohol use and was following the recommended diet by Dr. Serrano. However, on the morning of admission, he woke up with acute right upper quadrant abdominal pain, sharp in nature, nonradiating, not associated with vomiting or diarrhea; just some mild constipation. In the ED, his lipase was noted to be 173, but his CT abdomen and pelvis showed no pseudocyst on the pancreas as well as an ileus on the left. The patient was admitted for recurrent pancreatitis with no pseudocyst and ileus on the left. He was made n.p.o. He was given IV fluid boluses in the ED and then set on the right for his fluid volume depletion and acute kidney injury. Dr. Serrano was consulted. He was started on a PPI. He underwent serial abdominal x-rays. The patient also underwent a HIDA scan. The cystic duct was not demonstrated. Dr. Bill Reyes was consulted, however, his CT scan did show gallstones. His symptoms did sound like biliary colic prior to his episode of pancreatitis. Dr. Reyes felt that the patient would benefit from a cholecystectomy to prevent any future episodes of cholecystitis. They did give him 24 hours to ensure resolution of his pancreatitis and then the patient did undergo a laparoscopic cholecystectomy by Dr. Bill Reyes on 05/03/2017 and, in reference to his pseudocyst, and that they would need to follow these over the next 6 weeks with repeat imaging and palpation evaluations to monitor whether or not he would benefit from drainage of the cyst. The patient has tolerated a diet. He is appropriate for discharge home today. Vital Signs: Temperature is 97.9 degrees, heart rate 88, respirations 18, blood pressure 166/88, O2 is 96% on room air. DISCHARGE MEDICATIONS: 1. Nexium 40 mg p.o. daily. 2. [place] 7.5/325, one each p.o. q.6 hours p.r.n. 3. Prinivil 20 mg p.o. daily. 4. Centrum Silver 1 each p.o. daily. FOLLOWUP: The patient is being discharged home. He will follow up with his primary care physician, Dr. Joy, as well as Dr. Bill Reyes on 05/15/2017 at 8:30 a.m. and will need to follow up with Dr. Serrano in 6 months. The patient can return to the ED for any worsening of symptoms. Dictated by BRIJESH Mckeon for Fab Linton MD cc: MD Skinny Monge MD
--- NOTE | 2017-05-04 12:11 | PROGRESS NOTE ---
DATE: 05/04/2017 REFERRING PHYSICIAN: Thee Manzano MD. PRIMARY CARE DOCTOR: Skinny Joy MD. SUBJECTIVE: Patient resting in bed. He has recovered well after cholecystectomy yesterday. His intraoperative cholangiogram was normal. There is peak flow in the duodenum. The findings were discussed with the patient and family at bedside and all questions answered. The patient most likely will be going home today if cleared with the surgical team. The patient has been put on low-fat diet. The patient denies any fevers, rigors, chills, chest pain, nausea or significant change in bowel habits. OBJECTIVE: Vital Signs: On physical examination, temperature 97.9, pulse rate of 88, respiratory rate 18, blood pressure 116/88, satting 98% on room air. Body weight of 135 pounds. General Appearance: Moderately thin female, lying in bed in no acute distress. HEENT: Mild pallor. No icterus. Neck: Supple. Abdomen: Soft, nontender, nondistended. No guarding. Extremities: No cyanosis, clubbing. Neurologic: He was alert, awake, oriented. LABS: His hemoglobin and hematocrit is 10.1 and 32.7, white count of 5.6, platelet count of 199, MCV of 92.9. INR 1.08. Sodium 140, potassium 3.6, chloride 100, bicarbonate 29 , anion gap 12, BUN of 3 creatinine 0.6, glucose of 104, calcium is 8.6. Lipase on 05/03 was 112. Operative note from Dr. Bill Reyes showed chronically inflamed gallbladder with small stones noted within overall normal cholangiogram. IMPRESSION/PLAN: 1. Gallstone pancreatitis status post cholecystectomy. The patient will be on follow up with Dr. Reyes as per the surgical team. 2. Pancreatic pseudocyst, two of them in the tail; one is 9.5 cm and one is just under 6 cm. We will need to re-image them in 6 months to see if they shrink in size, but if the cysts continue to mature and they are persistently gaining in size, we may have to pursue antral drainage at [facility]. 3. The patient will be on low-fat diet for 6 weeks. 4. Diverticulosis colon. As we know, the patient will avoid corn, nuts, and seeds in diet and increase fiber intake 25 to 30 g 24 hours. 5. Anemia. The patient will need to follow with the primary care team. May need colonoscopy as an outpatient if anemia persists. The above plan discussed with the patient and family at bedside. All questions answered. cc: MD Skinny Rocha MD R. Tyler Harney, MD Omar J. Sosa-Chirinos, MD MTDD
--- NOTE | 2017-05-04 19:54 | PROGRESS NOTE ---
DATE: 05/04/2017 SUBJECTIVE: He feels well this morning. Only sore to incision. No pancreatitis pain. Tolerating a diet. OBJECTIVE: Vital signs: No fevers overnight. Temperature is 97.9, pulse 88, blood pressure 169/88. General: He is alert. There is no jaundice or scleral icterus. Abdomen: Soft, appropriately tender. Incision is clean, dry, and intact. LABORATORY: I reviewed his laboratory. White count 5, hematocrit 32. ASSESSMENT AND PLAN: This is a 71-year-old male with an episode of acute pancreatitis. A month ago he developed a pseudocyst and was found to have gallstones. This most likely is gallstone pancreatitis. However, there is likely a contributing factor of alcohol to this. His pseudocyst is now asymptomatic. His cholangiogram is normal and his LFTs and lipase have been normalizing. We will see him back in next 1-2 weeks in my office for postoperative visit and I will follow him at about a month for evaluation of pseudocyst and need for further management, waiting on the velez to mature. cc: Saurav Reyes MD
== END 2017-05-04 10:36 | disposition home or self-care (01) ==
LOC: ED 08:40 → 4N 12:20 → SUATTDRO 12:20
PROVIDERS: ATTEND Internal Medicine